=== PATIENT | male | born 1955 | race Caucasian/White ===

== ENCOUNTER 2016-11-03 18:24 | Emergency (ER) | payer OTHER ==
[~2016-11-03] VITALS: Ht 182.9 cm; Wt 88.0 kg
[~2016-11-03 18:24] MED LIST: ASPI81TA3 PO; ATOR80TA75 PO; CARV3.12 PO; CLOP75TA27 PO; ESOM40CA PO; HYDR-3504 PO; HYDR-906 PO; ISOS10TA2 PO; LORA-444 PO; LOSA100T47 PO; NAPR-688 PO; NIT4 SL; QUET200T27 PO
[2016-11-03 18:46] VITALS: Ht 182.9 cm; Wt 88.0 kg
[2016-11-03] MEDS ORDERED: ONDANSETRON 4 MG INJ IV STA (22:37)
[2016-11-03] MEDS ORDERED: morphine 4 MG/ML VIAL IV STA (22:37)
[2016-11-03] MEDS ORDERED: SOD CHLORIDE 0.9% 500 ML IV STA (22:37)
[2016-11-03] MEDS ORDERED: DIVA500T7 PO (22:59)
[2016-11-03] MEDS ORDERED: ISOS120T15 PO (22:59)
[2016-11-03] MEDS ORDERED: ESCI10TA PO (23:00)
[2016-11-03] MEDS ORDERED: PRAS10TA6 PO (23:02)
[2016-11-03] MEDS ORDERED: OLME5TAB4 PO (23:04)
--- NOTE | 2016-11-03 23:54 | RADRPT ---
PROCEDURE: XR Chest. CLINICAL INDICATION: Chest pain. TECHNIQUE: Single frontal view of the chest was obtained COMPARISON: 05/07/2016 FINDINGS: Cardiomegaly. Lungs are clear. Suspect a degree of COPD with changes of centrolobular emphysema. There is no pleural effusion or pneumothorax. IMPRESSION: No acute disease. RPTAT: [facility] Physician Naz Date Time Electronically viewed and signed by Ian Bahena Physician on 11/03/2016 23:54 RS/
[2016-11-03 23:55] LABS: ADD SCAN DIFF NO
[2016-11-03 23:57] LABS: EOSINOPHILS % 0.3 % (0.0-7.0); HEMATOCRIT 45.7 % (42.0-52.0); HEMOGLOBIN 15.5 g/dl (14.0-18.0); LYMPHOCYTES # 1.5 10^3/ul (0.8-2.9); LYMPHOCYTES % 19.5 % (15.0-51.0); MEAN CORPUSCULAR HEMOGLOBIN 29.3 pg (29.0-33.0); MEAN CORPUSCULAR HGB CONC 33.9 g/dl (32.0-37.0); MEAN CORPUSCULAR VOLUME 86.4 fl (82.0-101.0); MEAN PLATELET VOLUME 10.2 fl (7.4-10.4); MONOCYTE # 0.6 10^3/ul (0.3-0.9); MONOCYTES % 7.8 % (0.0-11.0); NEUTROPHIL # 5.6 10^3/ul (1.6-7.5); NEUTROPHILS % 72.1 % (39.0-77.0); PLATELET COUNT 197 10^3/UL (140-415); RED BLOOD COUNT 5.29 10^6/ul (4.70-6.10); RED CELL DISTRIBUTION WIDTH 13.4 % (11.5-14.5); WHITE BLOOD COUNT 7.7 10^3/ul (4.8-10.8)
[2016-11-04 00:05] LABS: ALBUMIN 4.4 g/dl (3.3-4.9); CHLORIDE 109 mmol/L (97-110); POTASSIUM 3.6 mmol/L (3.5-5.1); SODIUM 147 mmol/L (135-144)
[2016-11-04 00:06] LABS: INR 0.98
[2016-11-04 00:07] LABS: BILIRUBIN,INDIRECT 0.4 mg/dl (0-1.1); BILIRUBIN,TOTAL 0.4 mg/dl (0.2-1.3); CREATININE 0.77 mg/dl (0.61-1.24); PARTIAL THROMBOPLASTIN TIME 30.3 Sec (25.0-35.0)
[2016-11-04 00:08] LABS: ALANINE AMINOTRANSFERASE 26 IU/L (13-69); ALBUMIN/GLOBULIN RATIO 1.29; ALKALINE PHOSPHATASE 96 IU/L (42-121); ANION GAP 20 (8-16); ASPARTATE AMINO TRANSFERASE 26 IU/L (15-46); BLOOD UREA NITROGEN 10 mg/dl (7-20); CARBON DIOXIDE 22 mmol/L (21-31); GLUCOSE 88 mg/dl (70-220); TOTAL PROTEIN 7.8 g/dl (6.1-8.1)
[2016-11-04 00:09] LABS: CALCIUM 9.2 mg/dl (8.4-10.2)
[2016-11-04] MEDS ORDERED: KETOROLAC 30 MG INJ IV STA (00:12)
[2016-11-04 00:17] LABS: B-TYPE NATRIURETIC PEPTIDE 103 PG/ML (0-125)
[2016-11-04 00:27] LABS: TROPONIN-I < 0.012 ng/ml (0.00-0.12)
--- NOTE | 2016-11-04 01:51 | ERD ---
ER Documentation Chief Complaint Date/Time DATE: 11/04/16 TIME: 01:50 Chief Complaint chest pain since yesterday HPI Pain since yesterday. Patient has been in previous times with multiple workups in the past. Pain is mild to moderate intensity, right-sided in nature with no exacerbating or alleviating factors. ROS All systems reviewed and are negative except as per history of present illness. Medications Home Meds Reported Medications Olmesartan Medoxomil (Benicar) Unknown Strength Tablet, MG PO DAILY, #60 TAB 11/03/16 Prasugrel Hydrochloride* (Effient*) Unknown Strength Tablet, MG PO DAILY, TAB 11/03/16 Escitalopram Oxalate* (Lexapro*) 10 Mg Tablet, 10 MG PO DAILY, #30 TAB 11/03/16 Isosorbide Mononitrate* (Isosorbide Mononitrate*) 120 Mg Tab.sr.24h, 120 MG PO DAILY, TAB.SA 11/03/16 Divalproex Sodium* (Depakote ER*) 500 Mg Tabsr, 500 MG PO BID, #30 TAB.SA 11/03/16 Lorazepam* (Ativan*) 2 Mg Tablet, 2 MG PO BID Y for ANXIETY, #60 TAB 04/04/16 Hydrocodone Bit-Acetaminophen (Hydrocodone-APAP) 10-325MG Tablet, 1 TAB PO Q8 Y for PAIN, #20 09/10/15 Esomeprazole Mag Trihydrate (Nexium) 40 Mg Capsule.dr, 40 MG PO DAILY 08/18/15 Losartan Potassium* (Cozaar*) 100 Mg Tablet, 100 MG PO DAILY, TAB 06/28/15 Aspirin* (Aspirin* Chew) 81 Mg Tab.chew, 81 MG PO DAILY, TAB.CHEW 08/12/14 Nitroglycerin* (Nitrostat*) 0.4 Mg Tab.subl, 0.4 MG SL Q5MIN Y for CHEST PAIN, BOTTLE 08/12/14 Carvedilol* (Coreg*) 3.125 Mg Tablet, 3.125 MG PO BID, TAB 08/12/14 Atorvastatin* (Atorvastatin*) 80 Mg Tablet, 80 MG PO HS, TAB 08/12/14 Discontinued Reported Medications Quetiapine Fumarate* (Quetiapine Fumarate*) 200 Mg Tablet, 200 MG PO HS, TAB 04/04/16 Clopidogrel Bisulfate (Clopidogrel) 75 Mg Tablet, 75 MG PO DAILY, TAB 09/28/14 Isosorbide Dinitrate* (Isosorbide Dinitrate*) 10 Mg Tablet, 10 MG PO BID, TAB 08/12/14 Discontinued Scripts Hydrocodone/Acetaminophen ([place] 5-325 Tablet) 1 Each Tablet, 1 EACH PO Q6, #18 TAB Prov:LAWRENCE LEDEZMA DO 08/22/16 Naproxen* (Naproxen*) 500 Mg Tablet, 500 MG PO BID, #20 TAB Prov:LAWRENCE LEDEZMA DO 08/22/16 Hydrocodone/Acetaminophen ([place] 5-325 Tablet) 1 Each Tablet, 1 TAB PO Q6H Y for PAIN, #7 TAB Prov:EMILY FREEMAN PA-C 05/10/16 Allergies Allergies: Coded Allergies: haloperidol (Verified Allergy, Mild, TONGUE TWITHCING, 11/03/16) lisinopril (Verified Allergy, Unknown, cough, 11/03/16) PMhx/Soc History of Surgery: Yes (Appendectomy, R knee surgery, tonsils ) Anesthesia Reaction: No Hx Neurological Disorder: No Hx Respiratory Disorders: Yes (COPD, emphysema) Hx Cardiac Disorders: Yes (CAD, HTN, ) Hx Psychiatric Problems: Yes (Depression, bipolar) Hx Miscellaneous Medical Probl: Yes (HX of falls, ) Hx Alcohol Use: No Hx Substance Use: Yes (marijuana Q year) Hx Tobacco Use: Yes (vapor ciggs) Smoking Status: Current every day smoker Physical Exam Vitals Vital Signs Date Time Temp Pulse Resp B/P Pulse Ox O2 Delivery O2 Flow Rate FiO2 11/03/16 18:46 98.2 96 20 135/86 100 Physical Exam Const: [] Head: Atraumatic Eyes: Normal Conjunctiva ENT: Normal External Ears, Nose and Mouth. Neck: Full range of motion..~ No meningismus. Resp: Clear to auscultation bilaterally Cardio: Regular rate and rhythm, no murmurs Abd: Soft, non tender, non distended. Normal bowel sounds Skin: No petechiae or rashes Back: No midline or flank tenderness Ext: No cyanosis, or edema Neur: Awake and alert Psych: Normal Mood and Affect Result Diagram: 11/03/16 2320 11/03/16 2320 Results 24 hrs Laboratory Tests Test 11/03/16 23:20 Activated Partial Thromboplast Time 30.3Sec Alanine Aminotransferase (ALT/SGPT) 26IU/L Albumin 4.4g/dl Albumin/Globulin Ratio 1.29 Alkaline Phosphatase 96IU/L Anion Gap 20 Aspartate Amino Transf (AST/SGOT) 26IU/L B-Type Natriuretic Peptide 103PG/ML Basophils # 0.010^3/ul Basophils % 0.0% Blood Urea Nitrogen 10mg/dl Calcium Level 9.2mg/dl Carbon Dioxide Level 22mmol/L Chloride Level 109mmol/L Creatinine 0.77mg/dl Direct Bilirubin 0.00mg/dl Eosinophils # 0.010^3/ul Eosinophils % 0.3% Globulin 3.40g/dl Glucose Level 88mg/dl Hematocrit 45.7% Hemoglobin 15.5g/dl INR International Normalized Ratio 0.98 Indirect Bilirubin 0.4mg/dl Lymphocytes # 1.510^3/ul Lymphocytes % 19.5% Mean Corpuscular Hemoglobin 29.3pg Mean Corpuscular Hemoglobin Concent 33.9g/dl Mean Corpuscular Volume 86.4fl Mean Platelet Volume 10.2fl Monocytes # 0.610^3/ul Monocytes % 7.8% Neutrophils # 5.610^3/ul Neutrophils % 72.1% Nucleated Red Blood Cells # 0.010^3/ul Nucleated Red Blood Cells % 0.0/100WBC Platelet Count 83910^3/UL Potassium Level 3.6mmol/L Prothrombin Time 13.0Sec Prothrombin Time Ratio 1.0 Red Blood Count 5.2910^6/ul Red Cell Distribution Width 13.4% Sodium Level 147mmol/L Total Bilirubin 0.4mg/dl Total Protein 7.8g/dl Troponin I < 0.012ng/ml White Blood Count 7.710^3/ul Current Medications Medications (Trade) Dose Ordered Sig/Domenic Route PRN Reason Start Time Stop Time Status Last Admin Dose Admin Sodium Chloride (NS) 500 ml @ 500 mls/hr Q1H STAT IV 11/03/16 22:37 11/03/16 23:36 DC 11/03/16 23:24 Morphine Sulfate (morphine) 4 mg ONCE STAT IV 11/03/16 22:37 11/03/16 22:39 DC 11/03/16 23:24 Ondansetron HCl (Zofran Inj) 4 mg ONCE STAT IV 11/03/16 22:37 11/03/16 22:39 DC 11/03/16 23:30 Ketorolac Tromethamine (Toradol) 30 mg ONCE STAT IV 11/04/16 00:12 11/04/16 00:14 DC 11/04/16 00:31 Procedures/MDM EKG: Rate/Rhythm: Normal Sinus Rhythm QRS, ST, T-waves: No changes consistent w/ acute ischemia Impression: No evidence of ischemia or arrhythmia Chest X-ray 1V Interpreted by me: Soft Tissue: No acute abnormalities Bones: No acute abnormalities Mediastinum/Cardiac Silhouette/Lungs: No acute abnormalities Patient's thoracic symptoms have stabilized while in the department and are stable for outpatient follow up. Exam and work up not consistent w/ ischemia, arrhythmia, PE or dissection. Departure Diagnosis: Primary Impression: Chest pain Chest pain type: unspecified Qualified Code: R07.9 - Chest pain, unspecified type Condition: Stable ADALGISA GLASGOW Nov 04, 2016 01:51
[2016-11-04] MEDS ORDERED: TRAM50TA2 PO (01:52)
[2016-11-04 02:25] VITALS: BP 136/78; PULSE 58; RESP 17
== END 2016-11-04 02:26 | disposition home or self-care (01) ==
LOC: E/R 18:24
DX: R07.9 Chest pain, unspecified (principal); F17.210 Nicotine dependence, cigarettes, uncomplicated; I10 Essential (primary) hypertension; I25.10 Atherosclerotic heart disease of native coronary artery without angina pectoris; J44.9 Chronic obstructive pulmonary disease, unspecified; Z79.82 Long term (current) use of aspirin
CPT/HCPCS: 36415; 71010; 80053; 83880; 84484; 85025; 85610; 85730; 93005; 96361; 96374; 96375; J1885; J2270; J2405; J7040; Z7502

== ENCOUNTER 2017-02-04 21:58 | Inpatient (IN) | payer OTHER ==
[~2017-02-04] VITALS: Ht 182.9 cm; Wt 91.1 kg
[~2017-02-04 21:58] MED LIST changes: -CLOP75TA27 PO; +DIVA500T7 PO; +ESCI10TA PO; -HYDR-906 PO; -ISOS10TA2 PO; +ISOS120T15 PO; -NAPR-688 PO; +OLME5TAB4 PO; +PRAS10TA6 PO; -QUET200T27 PO; +TRAM50TA2 PO
--- NOTE | 2017-02-04 22:35 | ERA ---
ER Documentation Chief Complaint Date/Time DATE: 02/04/17 TIME: 22:34 Chief Complaint Chest pain HPI The patient is a 61-year-old male, presenting to the ER because of substernal chest pain and slurred speech that began about 8 hours ago. He had similar chest pain previous; he denies previous slurred speech. He did take 1 baby aspirin and 2 nitroglycerin with some relief. The chest pain is 8/10, nonradiating. He denies chest pain with exertion of vomiting or diaphoresis. He denies syncope, near syncope, neck pain, abdominal pain, vomiting, dysuria, diarrhea. He complains of left lateral thigh pain today, denies any tra Past medical history: CAD, hypertension, bipolar, dyslipidemia Past surgical history: Stent PCI 4 years ago, appendectomy, tonsillectomy, right knee arthroscopy ROS All systems reviewed and are negative except as per history of present illness. Medications Home Meds Active Scripts Tramadol HCl (Tramadol HCl) 50 Mg Tablet, 50 MG PO Q4 Y for PAIN, #20 TAB Prov:ALEXADALGISA HERNANDEZ 11/04/16 Reported Medications Quetiapine Fumarate* (Seroquel*) 300 Mg Tablet, 300 MG PO HS, TAB 02/04/17 Albuterol Sulfate* (Ventolin HFA*) 18 Gm Hfa.aer.ad, 1 PUFF INHALATION Q6H, #1 INHALER 02/04/17 Olmesartan Medoxomil (Benicar) 5 Mg Tablet, 5 MG PO DAILY, #60 TAB 11/03/16 Prasugrel Hydrochloride* (Effient*) 10 Mg Tablet, 10 MG PO DAILY, TAB 11/03/16 Escitalopram Oxalate* (Lexapro*) 10 Mg Tablet, 10 MG PO DAILY, #30 TAB 11/03/16 Isosorbide Mononitrate* (Isosorbide Mononitrate*) 120 Mg Tab.sr.24h, 120 MG PO DAILY, TAB.SA 11/03/16 Divalproex Sodium* (Depakote ER*) 500 Mg Tabsr, 500 MG PO BID, #30 TAB.SA 11/03/16 Lorazepam* (Ativan*) 2 Mg Tablet, 2 MG PO BID Y for ANXIETY, #60 TAB 04/04/16 Hydrocodone Bit-Acetaminophen (Hydrocodone-APAP) 10-325MG Tablet, 1 TAB PO Q8 Y for PAIN, #20 09/10/15 Esomeprazole Mag Trihydrate (Nexium) 40 Mg Capsule.dr, 40 MG PO DAILY 08/18/15 Losartan Potassium* (Cozaar*) 100 Mg Tablet, 100 MG PO DAILY, TAB 06/28/15 Aspirin* (Aspirin* Chew) 81 Mg Tab.chew, 81 MG PO DAILY, TAB.CHEW 08/12/14 Nitroglycerin* (Nitrostat*) 0.4 Mg Tab.subl, 0.4 MG SL Q5MIN Y for CHEST PAIN, BOTTLE 08/12/14 Carvedilol* (Coreg*) 3.125 Mg Tablet, 3.125 MG PO BID, TAB 08/12/14 Atorvastatin* (Atorvastatin*) 80 Mg Tablet, 80 MG PO HS, TAB 08/12/14 Allergies Allergies: Coded Allergies: haloperidol (Unverified Allergy, Mild, TONGUE TWITHCING, 02/04/17) lisinopril (Unverified Allergy, Unknown, cough, 02/04/17) PMhx/Soc History of Surgery: Yes (Appendectomy, R knee surgery, tonsils ) Anesthesia Reaction: No Hx Neurological Disorder: No Hx Respiratory Disorders: Yes (COPD, emphysema) Hx Cardiac Disorders: Yes (CAD, HTN, ) Hx Psychiatric Problems: Yes (Depression, bipolar) Hx Miscellaneous Medical Probl: Yes (HX of falls, ) Hx Alcohol Use: No Hx Substance Use: Yes (marijuana Q year) Hx Tobacco Use: Yes (vapor ciggs) Physical Exam Vitals Vital Signs Date Time Temp Pulse Resp B/P Pulse Ox O2 Delivery O2 Flow Rate FiO2 02/05/17 02:00 76 20 106/68 95 Room Air 02/05/17 00:28 98.0 92 20 123/81 100 02/04/17 22:03 98.7 139 20 160/83 97 Physical Exam Const: No acute distress. Head: Atraumatic. Eyes: Normal Conjunctiva. ENT: Normal External Ears, Nose and Mouth. Neck: Full range of motion. No meningismus. Resp: Clear to auscultation bilaterally. Cardio: Regular but tachycardic Abd: Soft, non distended, normal bowel sounds, non tender. Skin: No petechiae or rashes. Back: No midline or flank tenderness. Ext: No cyanosis, or edema. Neur: Awake and alert. No focal deficit Psych: Normal Mood and Affect. Result Diagram: 02/04/17225602/04/172256 Results 24 hrs Laboratory Tests Test 02/04/17 22:57 02/05/17 01:44 White Blood Count 4.310^3/ul Red Blood Count 4.7010^6/ul Hemoglobin 13.8g/dl Hematocrit 40.4% Mean Corpuscular Volume 86.0fl Mean Corpuscular Hemoglobin 29.4pg Mean Corpuscular Hemoglobin Concent 34.2g/dl Red Cell Distribution Width 13.6% Platelet Count 53968^3/UL Mean Platelet Volume 9.9fl Neutrophils % 69.5% Lymphocytes % 23.7% Monocytes % 5.8% Eosinophils % 0.5% Basophils % 0.0% Nucleated Red Blood Cells % 0.0/100WBC Neutrophils # 3.010^3/ul Lymphocytes # 1.010^3/ul Monocytes # 0.310^3/ul Eosinophils # 0.010^3/ul Basophils # 0.010^3/ul Nucleated Red Blood Cells # 0.010^3/ul Prothrombin Time 13.2Sec Prothrombin Time Ratio 1.0 INR International Normalized Ratio 1.00 Activated Partial Thromboplast Time 30.3Sec D-Dimer 695.77ng/ml D-Dimer Comment Sodium Level 149mmol/L Potassium Level 2.9mmol/L Chloride Level 113mmol/L Carbon Dioxide Level 22mmol/L Anion Gap 17 Blood Urea Nitrogen 10mg/dl Creatinine 0.80mg/dl Glucose Level 185mg/dl Calcium Level 9.6mg/dl Total Bilirubin 0.3mg/dl Direct Bilirubin 0.00mg/dl Indirect Bilirubin 0.3mg/dl Aspartate Amino Transf (AST/SGOT) 26IU/L Alanine Aminotransferase (ALT/SGPT) 38IU/L Alkaline Phosphatase 88IU/L Troponin I < 0.012ng/ml Total Protein 6.9g/dl Albumin 4.4g/dl Globulin 2.50g/dl Albumin/Globulin Ratio 1.76 Lipase 34U/L Thyroid Stimulating Hormone (TSH) 2.600MIU/L Ethyl Alcohol Level < 10.0mg/dl Urine Opiates Screen Positive Urine Barbiturates Negative Urine Amphetamines Screen Negative Urine Benzodiazepines Screen Positive Urine Cocaine Screen Negative Urine Cannabinoids Negative Current Medications Medications (Trade) Dose Ordered Sig/Domenic Route PRN Reason Start Time Stop Time Status Last Admin Dose Admin Lorazepam (Ativan) 1 mg ONCE ONCE PO 02/05/17 00:00 02/05/17 00:01 DC 02/04/17 23:52 Potassium Chloride 60 meq 60 meq ONCE ONCE PO 02/05/17 00:12 02/05/17 00:13 DC 02/05/17 00:24 Sodium Chloride (NS) 100 ml @ ud STK-MED ONCE .ROUTE 02/05/17 00:34 02/05/17 00:35 DC 02/05/17 01:04 Iohexol 150 ml 150 ml STK-MED ONCE .ROUTE 02/05/17 00:34 02/05/17 00:35 DC 02/05/17 01:04 Sodium Chloride (NS) 1,000 ml @ 1,000 mls/hr Q1H ONCE IV 02/05/17 01:00 02/05/17 01:59 DC 02/05/17 01:14 Aspirin (Aspirin) 325 mg ONCE ONCE PO 02/05/17 01:00 02/05/17 01:01 DC 02/05/17 01:14 Nitroglycerin (Nitroglycerin 2% Oint) 1 inch ONCE ONCE TD 02/05/17 01:00 02/05/17 01:01 DC 02/05/17 01:14 Morphine Sulfate (morphine) 4 mg ONCE STAT IV 02/05/17 01:16 02/05/17 01:17 DC 02/05/17 01:24 Ondansetron HCl (Zofran Inj) 4 mg ONCE STAT IV 02/05/17 01:16 02/05/17 01:17 DC 02/05/17 01:24 Aspirin (Aspirin) 81 mg DAILY PO 02/05/17 09:00 Atorvastatin Calcium (Lipitor) 80 mg HS PO 02/05/17 21:00 Carvedilol (Coreg) 3.125 mg BID PO 02/05/17 09:00 Divalproex Sodium (Depakote Er) 500 mg BID PO 02/05/17 09:00 Escitalopram Oxalate (Lexapro) 10 mg DAILY PO 02/05/17 09:00 Isosorbide Mononitrate (Imdur) 120 mg DAILY PO 02/05/17 09:00 Lorazepam (Ativan) 2 mg BID PRN PO ANXIETY 02/05/17 03:00 Losartan Potassium (Cozaar) 100 mg DAILY PO 02/05/17 09:00 Prasugrel (Effient) 10 mg DAILY PO 02/05/17 09:00 Quetiapine Fumarate (Seroquel) 300 mg HS PO 02/05/17 21:00 Pantoprazole 40 mg 40 mg DAILY@06 PO 02/05/17 06:00 Sodium Chloride (NS) 1,000 ml @ 100 mls/hr Q10H IV 02/05/17 03:00 UNV Acetaminophen (Tylenol Tab) 650 mg Q4H PRN PO pain/fever 02/05/17 03:00 UNV Morphine Sulfate (morphine) 4 mg Q4H PRN IV pain 02/05/17 03:00 UNV Hydralazine HCl (Apresoline) 25 mg Q6H PRN PO sbp>160 02/05/17 03:00 UNV Ondansetron HCl (Zofran Inj) 4 mg Q4H PRN IV nausea 02/05/17 03:00 UNV Procedures/[place] [id number] Radiology Main Line: [phone] DIAGNOSTIC IMAGING REPORT Patient: NATHAN RAMOS : 1955 Age: 61 Sex: M MR #: [id number] DOS: 02/04/17 2243 Ordering MD: JAROD HERNANDES MD Location: E/R Room/Bed: PROCEDURE: XR Chest. CLINICAL INDICATION: Chest pain. TECHNIQUE: Single frontal view of the chest. COMPARISON: 11/03/2016 and 05/07/2016. FINDINGS: The cardiomediastinal silhouette is within normal limits. Mild left lung base atelectasis versus airspace disease. The lungs otherwise clear. No signs of pleural fluid or pneumothorax are seen. Old left rib fracture again seen. Otherwise, the osseous structures and soft tissues are unremarkable. IMPRESSION: Mild left lung base atelectasis versus airspace disease. RPTAT: [facility] R Shruti, Physician Date Time Electronically viewed and signed by Physician Naz on 02/04/2017 23:54 RS/ CC: JAROD HERNANDES MD [place] [id number] Radiology Main Line: [phone] DIAGNOSTIC IMAGING REPORT Patient: NATHAN RAMOS : 1955 Age: 61 Sex: M MR #: [id number] DOS: 02/04/17 2243 Ordering MD: JAROD HERNANDES MD Location: E/R Room/Bed: PROCEDURE: CT brain without contrast CLINICAL INDICATION: Slurred speech TECHNIQUE: A CT of the brain was performed utilizing axial sections from the skull base through the vertex without contrast. Sagittal and coronal images were also reformatted. The exam CTDIvol = 45.01 mGy and DLP = 720.23 mGy-cm. COMPARISON: 05/07/2016 FINDINGS: No acute intracranial hemorrhage is identified. There is no mass effect or midline shift. No extra-axial fluid collection is seen. The ventricles and sulci are within normal limits for size and configuration given the provided age of 61 years. The density of the brain is within normal limits. Ferrara-white differentiation is preserved. The osseous structures are unremarkable. Moderate mucosal thickening of the ethmoid sinuses is present. The remaining paranasal sinuses and mastoid air cells are clear. The atherosclerotic calcification of the cavernous internal carotid arteries is again noted RPTAT:HJJR IMPRESSION: 1. No evidence of acute intracranial abnormality or mass effect, the appearance the brain is within normal limits for the patient's provided age and unchanged from 05/07/2016. 2. Bilateral ethmoid sinus disease is again noted. 3. Cavernous internal carotid artery atherosclerotic calcification. Physician Braden Date Time Electronically viewed and signed by Physician Braden on 02/05/2017 00:07 JR/ CC: JAROD HERNANDES MD [place] [id number] Radiology Main Line: [phone] DIAGNOSTIC IMAGING REPORT Patient: NATHAN RAMOS : 1955 Age: 61 Sex: M MR #: [id number] DOS: 02/05/17 0005 Ordering MD: JAROD HERNANDES MD Location: E/R Room/Bed: PROCEDURE: CTA Chest. CLINICAL INDICATION: Dyspnea. Current tobacco use. TECHNIQUE: CT angiography of the chest, with axial, sagittal and coronal reformatted images. Automated dose exposure controls employed. The total exam CTDI equals 79.86 mGy and the total exam DLP equals 701.52 mGy-cm. 100 cc Omnipaque-300 nonionic IV contrast were employed. COMPARISON: No prior studies are available for comparison. FINDINGS: Study is limited secondary to prominent systemic arterial phase and pulmonary venous phase. Otherwise, no large central or proximal peripheral pulmonary emboli. Hyperinflation of COPD and changes of centrolobular emphysema. The lungs otherwise clear. No hilar or mediastinal adenopathy. The pleura and osseous structures unremarkable. Limited visualization of abdominal viscera is unremarkable. IMPRESSION: 1. Hyperinflation of COPD and changes of centrolobular emphysema. 2. No pulmonary emboli. RPTAT: [facility] Physician Naz Date Time Electronically viewed and signed by Physician Naz on 02/05/2017 01:48 RS/ CC: JAROD HERNANDES MD EKG: At 2205 hrs. read by emergency physician Rate/Rhythm: Sinus tachycardia 134 beats/min QRS, ST, T-waves: No ST elevation, no T inversion Impression: Abnormal EKG EKG: At 2251 hour read by emergency physician Rate/Rhythm: Sinus tachycardia 122 beats/min QRS, ST, T-waves: No ST elevation, no T inversion Impression: Abnormal EKG MEDICAL MAKING DECISION: The patient is a 71-year-old male with multiple cardiac risk factors, presenting with acute chest pain that is concerning for a ACS, acute slow speech of unclear etiology, acute hypokalemia. He was treated with 1 L normal saline for clinical dehydration, Ativan 1 mg p.o. for his acute anxiety, potassium chloride 60 mEq p.o. for low potassium, aspirin 325 mg and 1 inch of nitroglycerin ointment to the chest wall, morphine 4 mg IV for pain and Zofran 4 mg IV for nausea for acute chest pain with good response The differential diagnoses considered include but are not limited to acute coronary syndrome, acute myocardial infarction, pericarditis, pulmonary embolism , aortic dissection, pneumonia, pleural effusion, pneumothorax, GERD, chest wall pain, TIA, impending CVA Critical Care: Time: 35 minutes excluding all billable procedures. Treatments/Evaluations: Close monitoring and treatment of unstable vital signs, cardiorespiratory, and neurologic status, while maintaining tight balance of fluid, respiratory, and cardiac interventions.. Departure Diagnosis: Primary Impression: Chest pain Additional Impressions: Hypokalemia Slurred speech Anemia Leukopenia Condition: Stable Comments I discussed the findings with the patient. I discussed the patient with his physician Dr. Longoria at 2:20 AM who was made aware of the lab, the treatment, the patient condition. He is coming to evaluate patient JAROD HERNANDES MD Feb 04, 2017 22:35
[2017-02-04 23:29] LABS: ADD SCAN DIFF NO
[2017-02-04 23:32] LABS: EOSINOPHILS % 0.5 % (0.0-7.0); HEMATOCRIT 40.4 % (42.0-52.0); HEMOGLOBIN 13.8 g/dl (14.0-18.0); LYMPHOCYTES % 23.7 % (15.0-51.0); MEAN CORPUSCULAR HEMOGLOBIN 29.4 pg (29.0-33.0); MEAN CORPUSCULAR HGB CONC 34.2 g/dl (32.0-37.0); MEAN PLATELET VOLUME 9.9 fl (7.4-10.4); MONOCYTE # 0.3 10^3/ul (0.3-0.9); MONOCYTES % 5.8 % (0.0-11.0); NEUTROPHILS % 69.5 % (39.0-77.0); PLATELET COUNT 145 10^3/UL (140-415); RED CELL DISTRIBUTION WIDTH 13.6 % (11.5-14.5); WHITE BLOOD COUNT 4.3 10^3/ul (4.8-10.8)
[2017-02-04] MEDS ORDERED: ALBU18HF INHALATION (23:43)
[2017-02-04] MEDS ORDERED: QUET300T13 PO (23:43)
[2017-02-04 23:52] LABS: PROTIME 13.2 Sec (12.2-14.2)
--- NOTE | 2017-02-04 23:54 | RADRPT ---
PROCEDURE: XR Chest. CLINICAL INDICATION: Chest pain. TECHNIQUE: Single frontal view of the chest. COMPARISON: 11/03/2016 and 05/07/2016. FINDINGS: The cardiomediastinal silhouette is within normal limits. Mild left lung base atelectasis versus air space disease. The lungs otherwise clear. No signs of pleural fluid or pneumothorax are seen. Old l eft rib fracture again seen. Otherwise, the osseous structures and soft tissues are unremarkable. IMPRESSION: Mild left lung base atelectasis versus airspace disease. RPTAT: [facility] Physician Naz Date Time Electronically viewed and signed by Physician Naz on 02/04/2017 23:54 RS/
[2017-02-04 23:55] LABS: D-DIMER 695.77 ng/ml (<460)
[2017-02-04 23:56] LABS: ALANINE AMINOTRANSFERASE 38 IU/L (13-69); ALBUMIN 4.4 g/dl (3.3-4.9); ALBUMIN/GLOBULIN RATIO 1.76; ALKALINE PHOSPHATASE 88 IU/L (42-121); ANION GAP 17 (8-16); ASPARTATE AMINO TRANSFERASE 26 IU/L (15-46); BILIRUBIN,INDIRECT 0.3 mg/dl (0-1.1); BILIRUBIN,TOTAL 0.3 mg/dl (0.2-1.3); BLOOD UREA NITROGEN 10 mg/dl (7-20); CALCIUM 9.6 mg/dl (8.4-10.2); CARBON DIOXIDE 22 mmol/L (21-31); CHLORIDE 113 mmol/L (97-110); GLUCOSE 185 mg/dl (70-220); SODIUM 149 mmol/L (135-144); TOTAL PROTEIN 6.9 g/dl (6.1-8.1)
[2017-02-04 23:57] LABS: PARTIAL THROMBOPLASTIN TIME 30.3 Sec (25.0-35.0)
[2017-02-05] VITALS (11 sets, daily range): BP systolic 98–128; BP diastolic 54–76; PULSE 63–73; RESP 16–18; TEMP 98; Ht 182.9 cm; Wt 91.1 kg
[2017-02-05] MEDS ORDERED: LORAZEPAM 1 MG TAB PO ONE
[2017-02-05 00:07] LABS: ETHANOL < 10.0 mg/dl; POTASSIUM 2.9 mmol/L (3.5-5.1); TROPONIN-I < 0.012 ng/ml (0.00-0.12)
--- NOTE | 2017-02-05 00:07 | RADRPT ---
PROCEDURE: CT brain without contrast CLINICAL INDICATION: Slurred speech TECHNIQUE: A CT of the brain was performed utilizing axial sections from the skull base through th e vertex without contrast. Sagittal and coronal images were also reformatted. The exam CTDIvol = 45. 01 mGy and DLP = 720.23 mGy-cm. COMPARISON: 05/07/2016 FINDINGS: No acute intracranial hemorrhage is identified. There is no mass effect or midline shift. No extra -axial fluid collection is seen. The ventricles and sulci are within normal limits for size and con figuration given the provided age of 61 years. The density of the brain is within normal limits. G ray-white differentiation is preserved. The osseous structures are unremarkable. Moderate mucosal thickening of the ethmoid sinuses is pres ent. The remaining paranasal sinuses and mastoid air cells are clear. The atherosclerotic calcific ation of the cavernous internal carotid arteries is again noted RPTAT:HJJR IMPRESSION: 1. No evidence of acute intracranial abnormality or mass effect, the appearance the brain is within normal limits for the patient's provided age and unchanged from 05/07/2016. 2. Bilateral ethmoid sinus disease is again noted. 3. Cavernous internal carotid artery atherosclerotic calcification. Physician Braden Date Time Electronically viewed and signed by Physician Braden on 02/05/2017 00:07 JR/
[2017-02-05] MEDS ORDERED: POTASSIUM CHLORIDE (SR) 20 MEQ TAB PO ONE (00:12)
[2017-02-05] MEDS ORDERED: IOHEXOL 300MG/ML 150 ML BTL ONE (00:34)
[2017-02-05] MEDS ORDERED: SOD CHLORIDE 0.9% 100 ML ONE (00:34)
[2017-02-05] MEDS ORDERED: ASPIRIN 325 MG TAB PO ONE (01:00)
[2017-02-05] MEDS ORDERED: NITROGLYCERIN 2% 1 GM OINT PKT TD ONE (01:00)
[2017-02-05] MEDS ORDERED: SOD CHLORIDE 0.9% 1,000 ML IV ONE (01:00)
[2017-02-05] MEDS ORDERED: morphine 4 MG/ML VIAL IV STA (01:16)
[2017-02-05] MEDS ORDERED: ONDANSETRON 4 MG INJ IV STA (01:16)
--- NOTE | 2017-02-05 01:48 | RADRPT ---
PROCEDURE: CTA Chest. CLINICAL INDICATION: Dyspnea. Current tobacco use. TECHNIQUE: CT angiography of the chest, with axial, sagittal and coronal reformatted images. Auto mated dose exposure controls employed. The total exam CTDI equals 79.86 mGy and the total exam DLP e quals 701.52 mGy-cm. 100 cc Omnipaque-300 nonionic IV contrast were employed. COMPARISON: No prior studies are available for comparison. FINDINGS: Study is limited secondary to prominent systemic arterial phase and pulmonary venous phase. Otherwi se, no large central or proximal peripheral pulmonary emboli. Hyperinflation of COPD and changes of centrolobular emphysema. The lungs otherwise clear. No hilar or mediastinal adenopathy. The pleura and osseous structures unremarkable. Limited visualization of abdominal viscera is unremarkable. IMPRESSION: 1. Hyperinflation of COPD and changes of centrolobular emphysema. 2. No pulmonary emboli. RPTAT: [facility] Physician Naz Date Time Electronically viewed and signed by Physician Naz on 02/05/2017 01:48 RS/
[2017-02-05 02:54] LABS: BENZODIAZEPINES Positive (NEGATIVE)
[2017-02-05 02:57] LABS: BARBITURATES Negative (NEGATIVE); CANNABINOIDS Negative (NEGATIVE); COCAINE Negative (NEGATIVE); OPIATES Positive (NEGATIVE)
[2017-02-05] MEDS ORDERED: ACETAMINOPHEN 325 MG TAB PO PRN (03:00)
[2017-02-05] MEDS ORDERED: ONDANSETRON 4 MG INJ IV PRN (03:00)
[2017-02-05] MEDS: morphine 4 MG/ML VIAL IV PRN ×6 (04:18→23:53)
[2017-02-05] MEDS: PANTOPRAZOLE (EC) 40 MG TAB PO SCH (05:52)
[2017-02-05] MEDS: SOD CHLORIDE 0.9% 1,000 ML IV SCH ×3 (05:53→21:32)
[2017-02-05 08:33] LABS: CREATINE KINASE 57 IU/L (23-200)
[2017-02-05 08:52] LABS: CK-MB 0.32 ng/ml (0.0-2.4); TROPONIN-I < 0.012 ng/ml (0.00-0.12)
[2017-02-05 10:44] LABS: CALCIUM 8.7 mg/dl (8.4-10.2); CREATININE 0.78 mg/dl (0.61-1.24); MAGNESIUM 1.7 mg/dl (1.7-2.5); PHOSPHORUS 3.5 mg/dl (2.5-4.9)
[2017-02-05 11:16] LABS: CK-MB 0.31 ng/ml (0.0-2.4)
[2017-02-05] MEDS ORDERED: REGADENOSON 0.4 MG/5 ML SYG ONE (12:21)
[2017-02-05] MEDS ORDERED: MAGNESIUM SULFATE 2 GM/50 ML 50 ML IVPB ONE (12:30)
--- NOTE | 2017-02-05 13:02 | CONS ---
DATE OF ADMISSION: 02/05/2017 DATE OF CONSULTATION: 02/05/2017 CARDIOLOGY CONSULTATION REASON FOR CONSULTATION: Chest pain, assess for acute coronary syndrome. REQUESTING PHYSICIAN: Dr. Woodson from the hospitalist service, and Dr. Mohamud HISTORY OF PRESENT ILLNESS: Mr. Bronson is a 61-year-old male with history of coronary artery disease, status post prior PTCA and stent placement, bipolar disorder, hypertension, diastolic dysfunction, prior negative stress test July 2015, who presented with complaints of substernal chest pain and associated slurred speech. The patient had taken some nitroglycerin with some relief. The patient subsequently presented to the emergency department where he describes chest pain as pressure-like without radiation, occurring at rest. Upon arrival, temperature 98.7, blood pressure 160/83, pulse 139, respiratory rate 20, saturating 97%. The patient's labs revealed a white blood cell count of 4.3, hemoglobin 13.8, platelet count of 145, sodium 149, potassium 2.9, creatinine of 0.8, BUN 10, AST 26, ALT 38, INR 1. Tox screen positive for opiates and benzos. The patient's electrocardiogram revealed sinus tachycardia at a rate of [address] and T-wave abnormalities. Patient subsequently admitted to the floor and since admit to the floor, has had 2 further troponins return negative for a total of 3 negative troponins. The patient continues to complain of chest pain. PAST MEDICAL HISTORY: As above in HPI. MEDICATIONS CURRENTLY IN HOSPITAL: 1. Lipitor 80 mg at bedtime. 2. Seroquel. 3. Aspirin 81 mg daily. 4. Carvedilol 3.125 mg p.o. b.i.d. 5. Lexapro. 6. Imdur 120 mg daily. 7. Cozaar 100 mg daily. 8. Effient 10 mg daily. 9. Protonix 40 mg daily. 10. IV fluid hydration at 100 mL an hour. 11. P.r.n. Zofran. 12. P.r.n. hydralazine. 13. P.r.n. morphine. ALLERGIES: 1. HALDOL. 2. LISINOPRIL. SOCIAL HISTORY: Positive tobacco. Social ETOH. Positive marijuana use. FAMILY HISTORY: No history of sudden cardiac or early CAD. REVIEW OF SYSTEMS: As above in HPI. CONSTITUTIONAL: No fevers, chills. PULMONARY: Shortness of breath. CARDIOVASCULAR: Chest pain. GASTROINTESTINAL: No vomiting. GENITOURINARY: No hematuria. MUSCULOSKELETAL: Degenerative joint disease. PSYCHIATRIC: Positive psychiatric history. NEUROLOGIC: No documented history of CVA. PHYSICAL EXAMINATION: VITAL SIGNS: Temperature of 98, blood pressure most recently 110/59, pulse 60, respiratory rate 18, satting 99%. GENERAL: The patient is alert, awake, in no acute distress. NECK: JVP approximately 8 to 9 cm of water. CHEST: Fair air movement throughout. HEART: Regular rate and rhythm, normal S1, S2, I/ systolic murmur, nondisplaced PMI. ABDOMEN: Positive bowel sounds, soft. EXTREMITIES: No edema, 1+ pulses bilaterally, posterior tibial. LABORATORY DATA: As above in [facility] with most recently from today, sodium 148, potassium 4.0, creatinine 0.7, BUN 10, troponin negative x3. TSH 2.6. IMAGING STUDIES: As above in HPI with a CTA revealing hyperinflation changes of centrilobular emphysema, no pulmonary emboli. ECG: As above in HPI. No further electrocardiograms for my review at this time. IMPRESSION: 1. Chest pain, assess for acute coronary syndrome. 2. Abnormal electrocardiogram, assess for acute coronary syndrome. 3. Hypertension. 4. Dyslipidemia. 5. Chronic obstructive pulmonary disease. 6. Psychiatric disorder. 7. History of percutaneous transluminal coronary angioplasty and stent placement. 8. Ongoing tobacco usage. 9. Anemia, mild. 10. Hypernatremia. RECOMMENDATIONS: 1. At this time, would maintain patient on telemetry monitoring to follow the rhythm and rate control closely. 2. Continue the patient's aspirin for prophylaxis against cardiovascular events and for stent patency. 3. Continue patient's current carvedilol at this time for blood pressure control and Imdur for antianginal effects, as well as Cozaar for blood pressure control. 4. Continue patient's current statin, adjust it according to fasting lipid panel to be checked. 5. We will follow the patient's 2D echo to further assess the patient's ejection fraction, wall motion and major valve abnormalities, and patient is scheduled for a cardiac stress test today to assess for possibility of recurrent significant lending to symptoms of chest pain, and subsequently admit to the hospital. Thank you for allowing me to take part in the care of this patient. I will continue to follow very closely with you with further recommendations to be made as the patient progresses through his inpatient hospital clinical course. Dictated By: JUAN ALBERTO MEJIA/ANNABELLA Conf#: [id number] DID#: [id number] CC: JUAN WOODSON MD;*EndCC* MTDD
--- NOTE | 2017-02-05 13:07 | CARRPT ---
DATE OF PROCEDURE: 02/05/2017 REASON FOR STRESS TESTING: Chest pain, assess for ischemia. BASELINE VITAL SIGNS AND ELECTROCARDIOGRAM: Pulse 59, blood pressure 133/79. Electrocardiogram rev eals sinus bradycardia, rate 59, normal axis, normal intervals, lateral T-wave inversions isolated t o lead aVL. PROCEDURE: The patient underwent standard Lexiscan infusion protocol over 10 seconds followed by ra diolabeled tracer. The patient's test was stopped due to completion of protocol. Maximal achieved blood pressure during the test 127/72. Maximum heart rate during the test 88. ELECTROCARDIOGRAM FINDINGS: The patient did not develop any new Lexiscan-induced ST or T-wave arnold es from baseline abnormalities. No documented PVCs. SYMPTOMS: The patient had complaints of chest pain during stress test that resolved during recovery . IMPRESSION: 1. No Lexiscan-induced ST or T-wave changes from baseline abnormalities diagnostic for cardiac isch emia. 2. Complaints of chest pain during stress testing, which resolved in recovery. 3. No documented premature ventricular contractions during stress testing. 4. Report of nuclear images to follow in separate dictation. Dictated By: JUAN ALBERTO MEJIA/ANNABELLA Conf#: [id number] DID#: [id number] CC: SERGEY CORONA MD; * ;*[facility]*
--- NOTE | 2017-02-05 13:44 | RADRPT ---
PROCEDURE: Lexiscan myocardial perfusion study CLINICAL INDICATION: 61 -year-old patient complaining of chest pain. TECHNIQUE: Lexiscan 0.4 mg intravenously separate acquisition gated myocardial perfusion SPECT usi ng Tc 99m Myoview 31.4 mCi intravenously at stress and Tc-99m Myoview, 10.2 mCi intravenously at res t was performed using the rest/stress sequence. Poststress Myoview SPECT images were obtained in th e supine position. COMPARISON: August 09, 2015. FINDINGS: Perfusion images reveal mild nonreversible perfusion abnormality in the inferoapical, inferior and i nferoseptal mireles. There is no evidence of new perfusion defects. Lexiscan post stress gated SPECT images demonstrate mild hypokinesis of the left ventricle. IMPRESSION: 1. The type and distribution of the scintigraphic abnormalities are most consistent with an unchang ed nonreversible perfusion defect in the inferoapical, inferior and inferoseptal mireles. 2. Mild hypokinesis of the left ventricle. 3. The left ventricle ejection fraction at stress is 43% (prior EF was 48%). RPTAT: HH .More Snyder MD, Date Time Electronically viewed and signed by .More Snyder MD, on 02/05/2017 13:43 .L/
--- NOTE | 2017-02-05 14:57 | PDOCDIS ---
Discharge Instructions CONDITION Patient Condition: Stable HOME CARE INSTRUCTIONS: Diet Instructions: Low Fat /CholesterolSpecial Diet: cardiac diet ACTIVITY: Activity Restrictions: No Restrictions FOLLOW UP/APPOINTMENTS Appointments Follow up with PCP within 1 week Follow up with Cardiology in 1 to 2 weeks JUAN WOODSON Feb 05, 2017 14:57
[2017-02-05] MEDS ORDERED: ADV25050 INH (15:01)
[2017-02-05] MEDS ORDERED: TRAM50TA2 PO (15:01)
[2017-02-05] MEDS ORDERED: TIOT18CA INH (15:01)
[2017-02-05] MEDS: PRASUGREL HYDROCHLORIDE 10 MG TABLET PO SCH (15:33)
[2017-02-05] MEDS: LOSARTAN 50 MG TAB PO SCH (15:35)
[2017-02-05] MEDS: LORAZEPAM 1 MG TAB PO PRN ×2 (15:36→21:31)
[2017-02-05] MEDS: ESCITALOPRAM 10 MG TAB PO SCH (15:36)
[2017-02-05] MEDS: DIVALPROEX (ER) 500 MG TAB PO SCH ×2 (15:36→20:05)
[2017-02-05] MEDS: ASPIRIN 81 MG TAB PO SCH (15:37)
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
[2017-02-05] MEDS: ISOSORBIDE MONONITRATE(SR)60 MG TAB PO SCH (15:38)
--- NOTE | 2017-02-05 15:51 | RADRPT ---
Echocardiogram Report Patient Name: NATHAN RAMOS Gender: Male Date: 1955 Study Date: 05-Feb-2017 Orthopaedic Nurse: Shania Lopez [facility] Location: 5538 Ref. Physician: SERGEY CORONA Quality: Adequate Procedures: Transthoracic echocardiogram with complete 2D, M-Mode, and doppler examination. Indications: Chest Pain. 2D/M Mode Doppler Measurement Value Normal Ranges Measurement Value Normal Ranges LVIDd 2D 5.4 3.5 - 5.6 cm AV Peak Heath 1.1 m/sec LVIDs 2D 2.7 2.1 - 4.1 cm AV Peak PG 4.0 mmHg FS 2D 49.4 % LVOT Peak Heath 0.9 m/sec LVPWd 2D 1.1 0.6 - 1.1 cm LVOT Peak PG 3.0 mmHg IVSd 2D 1.2 0.6 - 1.1 cm MV E Peak Heath 0.6 m/sec IVS/LVPW 2D 1.1 MV A Peak Heath 0.7 m/sec AoR Diam 2D 3.5 2.0 - 3.7 cm MV E/A 0.8 LA/Ao 2D 1 0 - 1 MV Decel Time 127 msec EDV 2D 157.0 cm3 MV E/A 0.8 ESV 2D 20.3 cm3 TR Peak Heath 2.0 m/sec LA Dimen 2D 3.7 2.3 - 4.0 cm TR Peak PG 17.0 mmHg RVSP 20.0 mmHg Findings Left Ventricle: Lower limits of normal systolic function. Normal left ventricular cavity size. Mild concentric left ventricular hypertrophy. Ejection fraction is visually estimated at 50 %. Tissue Doppler/Mitral Doppler indices are consistent with impaired relaxation (Stage I diastolic dysfunction). Right Ventricle: Normal right ventricular size. Normal right ventricular systolic function. Left Atrium: The left atrium is normal in size. Right Atrium: The right atrium is normal in size. Mitral Valve: Normal appearance and function of the mitral valve with trace physiologic regurgitation. Aortic Valve: Normal appearance of the aortic valve. No significant aortic stenosis or insufficiency. Tricuspid Valve: Normal appearance of the tricuspid valve. Estimated peak PA systolic pressure 20 mmHg. There is trace tricuspid regurgitation. Pulmonic Valve: Normal pulmonic valve appearance. Pericardium: Normal pericardium with no significant pericardial effusion. Aorta: Normal aortic root. IVC: Normal size and normal respiratory collapse consistent with normal right atrial pressure. Conclusions Lower limits of normal systolic function. Normal left ventricular cavity size. Mild concentric left ventricular hypertrophy. Ejection fraction is visually estimated at 50 %. Tissue Doppler/Mitral Doppler indices are consistent with impaired relaxation (Stage I diastolic dysfunction). Normal right ventricular size. Normal right ventricular systolic function. The left atrium is normal in size. The right atrium is normal in size. No significant valvular stenosis or regurgitation seen. Normal pericardium with no significant pericardial effusion. Electronically Signed By: Tremayne Patterson 05-Feb-2017 15:50:19 -0700 Patient Name: NATHAN RAMOS Study Date: 05-Feb-2017 [id number]
[2017-02-05] MEDS: SALMETEROL/FLUTICASONE 250/50 INHA INH SCH ×2 (17:52→20:05)
[2017-02-05] MEDS: TIOTROPIUM 18 MCG CAPSULE INHA DEV INH SCH (17:52)
--- NOTE | 2017-02-05 20:05 | RADRPT ---
PROCEDURE: Ultrasound of the left lower extremity venous system. CLINICAL INDICATION: Left leg pain and swelling, deep venous thrombosis TECHNIQUE: Ferrara scale with and without compression, color doppler, spectral doppler of the venous system of the left lower extremity was performed. Venous augmentation maneuvers were utilized. COMPARISON: No prior studies are available for comparison. FINDINGS: Common femoral vein: Patent. Femoral vein: Patent. Popliteal vein: Patent. Calf veins: Patent. No soft tissue abnormalities are identified. IMPRESSION: No evidence of a deep vein thrombosis within the left lower extremity. RPTAT: AADD .Zafar Alarcon MD, MD Date Time Electronically viewed and signed by .Zafar Alarcon MD, on 02/05/2017 20:05 .B/
[2017-02-05] MEDS ORDERED: QUETIAPINE 100 MG TAB PO SCH (21:00)
[2017-02-05] MEDS ORDERED: ATORVASTATIN 80 MG TAB PO SCH (21:00)
--- NOTE | 2017-02-05 21:09 | RADRPT ---
PROCEDURE: US Lower extremity Arteries. CLINICAL INDICATION: Claudication TECHNIQUE: Multiple longitudinal and transverse images of the bilateral lower extremity arteries w ere obtained with bradley scale and color Doppler imaging. COMPARISON: No prior studies are available for comparison. FINDINGS: Peak systolic velocities are as follows: Location RightLeft waveforms [id number] cm/ozb789 cm/sec triphasic/triphasic PSFA96 cm/ooi040 cm/sec triphasic/triphasic UMGQ420 cm/icz270 cm/sec triphasic/triphasic DSFA94 cm/sec96 cm/sec triphasic/triphasic POP66 cm/sec75 cm/sec triphasic/triphasic PTA59 cm/sec49 cm/sec triphasic/triphasic NOT694 cm/sec59 cm/sec triphasic/triphasic Ankle brachial indices: PT: 0.87 0.92 DP: 0.92 0.96 RPTAT:HJJR IMPRESSION: 1. Mild plaque formation without evidence for hemodynamically significant stenosis or occlusion. Physician Braden Date Time Electronically viewed and signed by Physician Braden on 02/05/2017 21:08 /
[2017-02-06] VITALS (7 sets, daily range): BP systolic 99–109; BP diastolic 53–58; PULSE 61–70; RESP 18
[2017-02-06] MEDS: morphine 4 MG/ML VIAL IV PRN ×2 (03:52→08:23)
[2017-02-06] MEDS: PANTOPRAZOLE (EC) 40 MG TAB PO SCH (05:54)
[2017-02-06] MEDS: SOD CHLORIDE 0.9% 1,000 ML IV SCH (07:28)
[2017-02-06] MEDS: SALMETEROL/FLUTICASONE 250/50 INHA INH SCH (08:21)
[2017-02-06] MEDS: ASPIRIN 81 MG TAB PO SCH (08:21)
[2017-02-06] MEDS: PRASUGREL HYDROCHLORIDE 10 MG TABLET PO SCH (08:21)
[2017-02-06] MEDS: ESCITALOPRAM 10 MG TAB PO SCH (08:21)
[2017-02-06] MEDS: TIOTROPIUM 18 MCG CAPSULE INHA DEV INH SCH (08:21)
[2017-02-06] MEDS: DIVALPROEX (ER) 500 MG TAB PO SCH (08:21)
[2017-02-06] MEDS: ISOSORBIDE MONONITRATE(SR)60 MG TAB PO SCH (08:22)
[2017-02-06] MEDS: LOSARTAN 50 MG TAB PO SCH (08:23)
[2017-02-06 08:29] LABS: CHOL/HDL RATIO 4.5 RATIO
--- NOTE | 2017-02-06 09:52 | PN ---
Date/Time of Note Date/Time of Note DATE: 02/06/17 TIME: 09:47 Assessment/Plan VTE Prophylaxis VTE Prophylaxis Intervention: ambulation Lines/Catheters IV Catheter Type (from Nrs): Peripheral IV Assessment/Plan Assessment/Plan 61-year-old male with: 1. Chest pressure which is atypical at this point, his stress test is unchanged. He has been ruled out for acute coronary syndrome. This may actually be related more so to his chronic obstructive pulmonary disease and he is still actively smoking. Continue cardiac meds Continue Advair and Spiriva and resume Ventolin prn at home 2. Hypertension. continue home Meds 3. Bipolar depression. Continue home medication. 4. Hyperlipidemia. Continue Lipitor. 5. Left lower extremity pain, Doppler arterial and venous of the left lower extremity negative are pending. Continue antiplatelet therapy. 6. Tobacco use via electronic cigarettes. I have counseled for the patient to quit altogether and just stop the electronic cigarettes too. 7. Gastroesophageal reflux disease. Continue proton pump inhibitors. Prophylaxis. The patient on proton pump inhibitors already and ambulatory. DISPOSITION: D/c home with PCP and cardiology follow up. Subjective 24 Hr Interval Summary Free Text/Dictation Patient is doing Well Cardiac w/u negative and Doppler Lower ext negative too D/c home this AM Exam/Review of Systems Vital Signs Vitals Vital Signs Date Time Temp Pulse Resp B/P Pulse Ox O2 Delivery O2 Flow Rate FiO2 02/06/17 08:21 63 02/06/17 07:39 98.3 18 100/55 95 02/05/17 23:31 Nasal Cannula 2.0 Intake and Output 02/05/17 02/05/17 02/06/17 14:59 22:59 06:59 Intake Total 1480 ml 500 ml Balance 1480 ml 500 ml Exam Constitutional: alert, oriented, well developed Respiratory: clear to auscultation, normal air movement Cardiovascular: nl pulses, regular rate and rhythm Gastrointestinal: non-tender, soft Musculoskeletal: nl extremities to inspection Extremities: normal pulses, other (no edema, clubbing or cyanosis ) Neurological: [employer] II-XII intact, nl mental status, nl speech, nl strength Results Result Diagram: 02/04/17 2203 02/05/17 1000 Results 24 hrs Laboratory Tests Test 02/05/17 10:00 02/06/17 06:48 Sodium Level 148 H Potassium Level 4.0 Chloride Level 117 H Carbon Dioxide Level 24 Anion Gap 11 Blood Urea Nitrogen 10 Creatinine 0.78 Glucose Level 87 # Calcium Level 8.7 Phosphorus Level 3.5 Magnesium Level 1.7 Creatine Kinase 59 Creatinine Kinase MB (Mass) 0.31 Troponin I < 0.012 Triglycerides Level 109 Cholesterol Level 124 LDL Cholesterol, Calculated 75 HDL Cholesterol 27 L Cholesterol/HDL Ratio 4.5 Medications Medications Current Medications Aspirin (Aspirin) 81 mg DAILY PO Last administered on 02/06/17 08:21; Admin Dose 81 MG; Start 02/05/17 at 09:00 Atorvastatin Calcium (Lipitor) 80 mg HS PO Last administered on 02/05/17 20:05 ; Admin Dose 80 MG; Start 02/05/17 at 21:00 Carvedilol (Coreg) 3.125 mg BID PO Last administered on 02/06/17 08:25; Admin Dose 3.125 MG; Start 02/05/17 at 09:00 Divalproex Sodium (Depakote Er) 500 mg BID PO Last administered on 02/06/17 08: 21; Admin Dose 500 MG; Start 02/05/17 at 09:00 Escitalopram Oxalate (Lexapro) 10 mg DAILY PO Last administered on 02/06/17 08: 21; Admin Dose 10 MG; Start 02/05/17 at 09:00 Isosorbide Mononitrate (Imdur) 120 mg DAILY PO Last administered on 02/06/17 08 :22; Admin Dose 120 MG; Start 02/05/17 at 09:00 Lorazepam (Ativan) 2 mg BID PRN PO ANXIETY Last administered on 02/05/17 21:31 ; Admin Dose 2 MG; Start 02/05/17 at 03:00 Losartan Potassium (Cozaar) 100 mg DAILY PO Last administered on 02/06/17 08:23 ; Admin Dose 100 MG; Start 02/05/17 at 09:00 Prasugrel (Effient) 10 mg DAILY PO Last administered on 02/06/17 08:21; Admin Dose 10 MG; Start 02/05/17 at 09:00 Quetiapine Fumarate (Seroquel) 300 mg HS PO Last administered on 02/05/17 21:31 ; Admin Dose 300 MG; Start 02/05/17 at 21:00 Pantoprazole 40 mg 40 mg DAILY@06 PO Last administered on 02/06/17 05:54; Admin Dose 40 MG; Start 02/05/17 at 06:00 Sodium Chloride (NS) 1,000 ml @ 100 mls/hr Q10H IV Last administered on 07:28; Admin Dose 100 MLS/HR; Start 02/05/17 at 03:00 Acetaminophen (Tylenol Tab) 650 mg Q4H PRN PO pain/fever; Start 02/05/17 at 03: 00 Morphine Sulfate (morphine) 4 mg Q4H PRN IV pain Last administered on 02/06/17 08:23; Admin Dose 4 MG; Start 02/05/17 at 03:00 Hydralazine HCl (Apresoline) 25 mg Q6H PRN PO sbp>160 Last administered on 15:36; Admin Dose 25 MG; Start 02/05/17 at 03:00 Ondansetron HCl (Zofran Inj) 4 mg Q4H PRN IV nausea; Start 02/05/17 at 03:00 Salmeterol Xinafoate/ Fluticasone (Advair 250/50 Diskus) 1 inh BID INH Last administered on 02/06/17 08:21; Admin Dose 1 INH; Start 02/05/17 at 16:30 Tiotropium Hubbard (Spiriva) 1 inh DAILY INH Last administered on 02/06/17 08: 21; Admin Dose 1 INH; Start 02/05/17 at 16:30 JUAN WOODSON Feb 06, 2017 09:52
--- NOTE | 2017-02-06 12:49 | CONS ---
Date/Time of Note Date/Time of Note DATE: 02/06/17 TIME: 12:40 Assessment/Plan Assessment/Plan Chief Complaint/Hosp Course IMPRESSION: 1. Chest pain, assess for acute coronary syndrome.-negative trop x 3/Lexiscan no ischemia/scar/EF 43%/Echo EF 50% 2. Abnormal electrocardiogram, assess for acute coronary syndrome. 3. Hypertension. 4. Dyslipidemia. 5. Chronic obstructive pulmonary disease. 6. Psychiatric disorder. 7. History of percutaneous transluminal coronary angioplasty and stent placement. 8. Ongoing tobacco usage. 9. Anemia, mild. 10. Hypernatremia. REcc: -Tele -serial ecg's -Continue coreg/losartan -Continue effient/asa -Continue imdur/statin -Follow volume status -D/C plannig with outpatient f/u Problems: Consultation Date/Type/Reason Admit Date/Time Feb 05, 2017 at 04:22 Initial Consult Date 02/06/2017 Type of Consultation: Cardiology Reason for Consultation chest pain Referring Provider: JUAN WOODSON Exam/Review of Systems Vital Signs Vitals Vital Signs Date Time Temp Pulse Resp B/P Pulse Ox O2 Delivery O2 Flow Rate FiO2 02/06/17 12:11 61 02/06/17 11:53 98.0 18 99/53 97 02/05/17 23:31 Nasal Cannula 2.0 Intake and Output 02/05/17 02/05/17 02/06/17 15:00 23:00 07:00 Intake Total 1480 ml 500 ml Balance 1480 ml 500 ml Exam Review of Systems: CONSTITUTIONAL: No fevers, chills. PULMONARY: No sob CARDIOVASCULAR: No chest pain/palpitations GASTROINTESTINAL: No nausea/vomiting. GENITOURINARY: No hematuria/dysuria. MUSCULOSKELETAL: No myagias/arthalgias. PSYCHIATRIC: The patient denies depression. NEUROLOGIC: No weakness Constitutional: alert Psych: no complaints Head: normocephalic ENMT: mucosa pink and moist Neck: jvd (8 cm water), supple Respiratory: diminished breath sounds Cardiovascular: regular rate and rhythm Gastrointestinal: non-tender, soft Musculoskeletal: muscle tone (normal) Extremities: edema (trace) Neurological: other (no focal deficits) Results Result Diagram: 02/04/17 2257 02/05/17 1000 Results 24 hrs Laboratory Tests Test 02/06/17 06:48 Triglycerides Level 109 Cholesterol Level 124 LDL Cholesterol, Calculated 75 HDL Cholesterol 27 L Cholesterol/HDL Ratio 4.5 Medications Medications Current Medications Aspirin (Aspirin) 81 mg DAILY PO Last administered on 02/06/17 08:21; Admin Dose 81 MG; Start 02/05/17 at 09:00 Atorvastatin Calcium (Lipitor) 80 mg HS PO Last administered on 02/05/17 20:05 ; Admin Dose 80 MG; Start 02/05/17 at 21:00 Carvedilol (Coreg) 3.125 mg BID PO Last administered on 02/06/17 08:25; Admin Dose 3.125 MG; Start 02/05/17 at 09:00 Divalproex Sodium (Depakote Er) 500 mg BID PO Last administered on 02/06/17 08: 21; Admin Dose 500 MG; Start 02/05/17 at 09:00 Escitalopram Oxalate (Lexapro) 10 mg DAILY PO Last administered on 02/06/17 08: 21; Admin Dose 10 MG; Start 02/05/17 at 09:00 Isosorbide Mononitrate (Imdur) 120 mg DAILY PO Last administered on 02/06/17 08 :22; Admin Dose 120 MG; Start 02/05/17 at 09:00 Lorazepam (Ativan) 2 mg BID PRN PO ANXIETY Last administered on 02/05/17 21:31 ; Admin Dose 2 MG; Start 02/05/17 at 03:00 Losartan Potassium (Cozaar) 100 mg DAILY PO Last administered on 02/06/17 08:23 ; Admin Dose 100 MG; Start 02/05/17 at 09:00 Prasugrel (Effient) 10 mg DAILY PO Last administered on 02/06/17 08:21; Admin Dose 10 MG; Start 02/05/17 at 09:00 Quetiapine Fumarate (Seroquel) 300 mg HS PO Last administered on 02/05/17 21:31 ; Admin Dose 300 MG; Start 02/05/17 at 21:00 Pantoprazole 40 mg 40 mg DAILY@06 PO Last administered on 02/06/17 05:54; Admin Dose 40 MG; Start 02/05/17 at 06:00 Sodium Chloride (NS) 1,000 ml @ 100 mls/hr Q10H IV Last administered on 07:28; Admin Dose 100 MLS/HR; Start 02/05/17 at 03:00 Acetaminophen (Tylenol Tab) 650 mg Q4H PRN PO pain/fever; Start 02/05/17 at 03: 00 Morphine Sulfate (morphine) 4 mg Q4H PRN IV pain Last administered on 02/06/17 08:23; Admin Dose 4 MG; Start 02/05/17 at 03:00 Hydralazine HCl (Apresoline) 25 mg Q6H PRN PO sbp>160 Last administered on 15:36; Admin Dose 25 MG; Start 02/05/17 at 03:00 Ondansetron HCl (Zofran Inj) 4 mg Q4H PRN IV nausea; Start 02/05/17 at 03:00 Salmeterol Xinafoate/ Fluticasone (Advair 250/50 Diskus) 1 inh BID INH Last administered on 02/06/17 08:21; Admin Dose 1 INH; Start 02/05/17 at 16:30 Tiotropium [place] (Spiriva) 1 inh DAILY INH Last administered on 02/06/17 08: 21; Admin Dose 1 INH; Start 02/05/17 at 16:30 JUAN ALBERTO LEUNG Feb 06, 2017 12:48
== END 2017-02-06 13:12 | disposition home or self-care (01) | DRG 313 ==
LOC: E/R 21:58 → MS4 02-05 04:22
PROVIDERS: ADMIT Legal Medicine; ATTEND Legal Medicine
DX: R07.9 Chest pain, unspecified (principal); E87.0 Hyperosmolality and hypernatremia; I10 Essential (primary) hypertension; E78.5 Hyperlipidemia, unspecified; J44.9 Chronic obstructive pulmonary disease, unspecified; F99 Mental disorder, not otherwise specified; F17.200 Nicotine dependence, unspecified, uncomplicated; D64.9 Anemia, unspecified; F31.9 Bipolar disorder, unspecified; K21.9 Gastro-esophageal reflux disease without esophagitis; Z79.82 Long term (current) use of aspirin
CPT/HCPCS: 36415; 70450; 71010; 71275; 78452; 80048; 80053; 80061; 80306; 80307; 82550; 82553; 83690; 83735; 84100; 84443; 84484; 85025; 85378; 85610; 85730; 93005; 93017; 93306; 93922; 93971; 96374; 96375; 96376; A9500; A9505; J2270; J2405; J2785; J3475; J7030; Q9967

== ENCOUNTER 2017-04-28 20:13 | Emergency (ER) | payer OTHER ==
[~2017-04-28] VITALS: Ht 182.9 cm; Wt 87.5 kg
[~2017-04-28 20:13] MED LIST changes: +ADV25050 INH; +ALBU18HF INHALATION; -HYDR-3504 PO; -OLME5TAB4 PO; +QUET300T13 PO; +TIOT18CA INH
[2017-04-28 20:41] VITALS: Ht 182.9 cm; Wt 87.5 kg
[2017-04-28 22:50] VITALS: TEMP 98.5
[2017-04-28] MEDS ORDERED: ASPIRIN 325 MG TAB PO STA (22:58)
[2017-04-28] MEDS ORDERED: SOD CHLORIDE 0.9% 500 ML IV STA (22:58)
[2017-04-28] MEDS ORDERED: LORAZEPAM 2 MG INJ IV ONE (23:00)
[2017-04-28 23:18] LABS: BASOPHILS % 0.1 % (0.0-2.0); EOSINOPHILS % 0.3 % (0.0-7.0); HEMATOCRIT 43.7 % (42.0-52.0); HEMOGLOBIN 15.6 g/dl (14.0-18.0); LYMPHOCYTES # 1.3 10^3/ul (0.8-2.9); LYMPHOCYTES % 19.2 % (15.0-51.0); MEAN CORPUSCULAR HEMOGLOBIN 30.5 pg (29.0-33.0); MEAN CORPUSCULAR HGB CONC 35.7 g/dl (32.0-37.0); MEAN CORPUSCULAR VOLUME 85.4 fl (82.0-101.0); MEAN PLATELET VOLUME 9.5 fl (7.4-10.4); MONOCYTE # 0.5 10^3/ul (0.3-0.9); MONOCYTES % 6.6 % (0.0-11.0); NEUTROPHILS % 73.5 % (39.0-77.0); PLATELET COUNT 149 10^3/UL (140-415); RED BLOOD COUNT 5.12 10^6/ul (4.70-6.10); RED CELL DISTRIBUTION WIDTH 13.4 % (11.5-14.5)
--- NOTE | 2017-04-28 23:56 | RADRPT ---
PROCEDURE: XR Chest. CLINICAL INDICATION: Chest pain. TECHNIQUE: Single frontal view of the chest. COMPARISON: Plain film chest dated 02/04/2017. FINDINGS: The cardiomediastinal silhouette is within normal limits. The thoracic aorta is mildly tortuous. Th e lungs are clear. No signs of pleural fluid or pneumothorax are seen. The osseous structures and so ft tissues are unremarkable. IMPRESSION: No evidence for active cardiopulmonary disease. RPTAT: [facility] Physician Naz Date Time Electronically viewed and signed by Physician Naz on 04/28/2017 23:56 RS/
[2017-04-29] MEDS ORDERED: PANT40TA4 PO (00:10)
[2017-04-29 00:12] LABS: ALANINE AMINOTRANSFERASE 34 IU/L (13-69); ALBUMIN 4.2 g/dl (3.3-4.9); ALBUMIN/GLOBULIN RATIO 1.23; ALKALINE PHOSPHATASE 103 IU/L (42-121); ANION GAP 20 (8-16); ASPARTATE AMINO TRANSFERASE 21 IU/L (15-46); BILIRUBIN,INDIRECT 0.3 mg/dl (0-1.1); BILIRUBIN,TOTAL 0.3 mg/dl (0.2-1.3); BLOOD UREA NITROGEN 13 mg/dl (7-20); CALCIUM 9.7 mg/dl (8.4-10.2); CARBON DIOXIDE 23 mmol/L (21-31); CHLORIDE 108 mmol/L (97-110); GLUCOSE 95 mg/dl (70-220); POTASSIUM 3.6 mmol/L (3.5-5.1); SODIUM 147 mmol/L (135-144); TOTAL PROTEIN 7.6 g/dl (6.1-8.1)
[2017-04-29] MEDS ORDERED: HYDR-902 PO (00:13)
[2017-04-29] MEDS ORDERED: CLOP75TA27 PO (00:21)
[2017-04-29 00:22] LABS: B-TYPE NATRIURETIC PEPTIDE 62 PG/ML (0-125); TROPONIN-I < 0.012 ng/ml (0.00-0.12)
--- NOTE | 2017-04-29 01:53 | ERD ---
ER Documentation Chief Complaint Date/Time DATE: 04/29/17 TIME: 01:52 Chief Complaint c/o nonradiating mid chest pain with mild SOB HPI Pneumonia 61-year-old male who was in moderate in with chest pain, shortness breath started earlier today. Pain is mild to moderate intensity. No fevers no chills no nausea no vomiting. No other current complaints. Pain located on the right side of his chest. Patient multiple previous workups and a recent stress test which was negative ROS All systems reviewed and are negative except as per history of present illness. Medications Home Meds Active Scripts Tiotropium [place]* (Spiriva*) 18 Mcg Cap.w.dev, 1 INH INH DAILY, #1 INHALER Prov:KANDICEGregoryRositaZANDERVITO Pastrana 02/05/17 Salmeterol Xinaf/Fluticasone* (Advair*) 250-50 Diskus Inhaler, 1 INH INH BID, # 1 INHALER Prov:KANDICEJUAN Cleary Zeina 02/05/17 Tramadol HCl (Tramadol HCl) 50 Mg Tablet, 50 MG PO Q6 Y for PAIN, #20 TAB Prov:KANDICEGregoryRositaZANDERVITO Pastrana 02/05/17 Reported Medications Clopidogrel Bisulfate (Clopidogrel) 75 Mg Tablet, 75 MG PO DAILY, #30 TAB 04/29/17 Hydrocodone/Acetaminophen ([place]ghar 10-325 Tablet) 1 Each Tablet, 1 EACH PO BID for PAIN LEVEL 6-10, TAB 04/29/17 Pantoprazole* (Pantoprazole*) 40 Mg Tablet.dr, 40 MG PO BID, TAB 04/29/17 Quetiapine Fumarate* (Seroquel*) 300 Mg Tablet, 300 MG PO HS, TAB 02/04/17 Albuterol Sulfate* (Ventolin HFA*) 18 Gm Hfa.aer.ad, 1 PUFF INHALATION Q6H, #1 INHALER 02/04/17 Escitalopram Oxalate* (Lexapro*) 10 Mg Tablet, 10 MG PO DAILY, #30 TAB 11/03/16 Isosorbide Mononitrate* (Isosorbide Mononitrate*) 120 Mg Tab.sr.24h, 120 MG PO DAILY, TAB.SA 11/03/16 Divalproex Sodium* (Depakote ER*) 500 Mg Tabsr, 500 MG PO BID, #30 TAB.SA 11/03/16 Lorazepam* (Ativan*) 2 Mg Tablet, 2 MG PO BID Y for ANXIETY, #60 TAB 04/04/16 Esomeprazole Mag Trihydrate (Nexium) 40 Mg Capsule.dr, 40 MG PO DAILY 08/18/15 Losartan Potassium* (Cozaar*) 100 Mg Tablet, 100 MG PO DAILY, TAB 06/28/15 Aspirin* (Aspirin* Chew) 81 Mg Tab.chew, 81 MG PO DAILY, TAB.CHEW 08/12/14 Nitroglycerin* (Nitrostat*) 0.4 Mg Tab.subl, 0.4 MG SL Q5MIN Y for CHEST PAIN, BOTTLE 08/12/14 Carvedilol* (Coreg*) 3.125 Mg Tablet, 3.125 MG PO BID, TAB 08/12/14 Atorvastatin* (Atorvastatin*) 80 Mg Tablet, 80 MG PO HS, TAB 08/12/14 Discontinued Reported Medications Prasugrel Hydrochloride* (Effient*) 10 Mg Tablet, 10 MG PO DAILY, TAB 11/03/16 Allergies Allergies: Coded Allergies: haloperidol (Unverified Allergy, Mild, TONGUE TWITHCING, 04/29/17) lisinopril (Unverified Allergy, Unknown, cough, 04/29/17) PMhx/Soc History of Surgery: Yes (appendectomcy, right knee sx, cardiac stent) Anesthesia Reaction: No Hx Neurological Disorder: No Hx Respiratory Disorders: Yes (copd, emphysema) Hx Cardiac Disorders: Yes (cardiac stent,htn) Hx Psychiatric Problems: Yes (depression, bipolar) Hx Miscellaneous Medical Probl: Yes (marijuan use) Hx Alcohol Use: No Hx Substance Use: No Hx Tobacco Use: Yes Smoking Status: Current every day smoker Physical Exam Vitals Vital Signs Date Time Temp Pulse Resp B/P Pulse Ox O2 Delivery O2 Flow Rate FiO2 04/28/17 23:02 Nasal Cannula 2 04/28/17 22:50 98.5 94 22 128/80 96 Nasal Cannula 2.0 04/28/17 20:41 98.6 128 22 121/79 96 Physical Exam Const: [] Head: Atraumatic Eyes: Normal Conjunctiva ENT: Normal External Ears, Nose and Mouth. Neck: Full range of motion..~ No meningismus. Resp: Clear to auscultation bilaterally Cardio: Regular rate and rhythm, no murmurs Abd: Soft, non tender, non distended. Normal bowel sounds Skin: No petechiae or rashes Back: No midline or flank tenderness Ext: No cyanosis, or edema Neur: Awake and alert Psych: Normal Mood and Affect Result Diagram: 04/28/17225704/28/172257 Results 24 hrs Laboratory Tests Test 04/28/17 22:58 White Blood Count 7.010^3/ul Red Blood Count 5.1210^6/ul Hemoglobin 15.6g/dl Hematocrit 43.7% Mean Corpuscular Volume 85.4fl Mean Corpuscular Hemoglobin 30.5pg Mean Corpuscular Hemoglobin Concent 35.7g/dl Red Cell Distribution Width 13.4% Platelet Count 25074^3/UL Mean Platelet Volume 9.5fl Neutrophils % 73.5% Lymphocytes % 19.2% Monocytes % 6.6% Eosinophils % 0.3% Basophils % 0.1% Nucleated Red Blood Cells % 0.0/100WBC Neutrophils # (Manual) 5.110^3/ul Lymphocytes # 1.310^3/ul Monocytes # 0.510^3/ul Eosinophils # 0.010^3/ul Basophils # 0.010^3/ul Nucleated Red Blood Cells # 0.010^3/ul Sodium Level 147mmol/L Potassium Level 3.6mmol/L Chloride Level 108mmol/L Carbon Dioxide Level 23mmol/L Anion Gap 20 Blood Urea Nitrogen 13mg/dl Creatinine 0.80mg/dl Glucose Level 95mg/dl Calcium Level 9.7mg/dl Total Bilirubin 0.3mg/dl Direct Bilirubin 0.00mg/dl Indirect Bilirubin 0.3mg/dl Aspartate Amino Transf (AST/SGOT) 21IU/L Alanine Aminotransferase (ALT/SGPT) 34IU/L Alkaline Phosphatase 103IU/L Troponin I < 0.012ng/ml B-Type Natriuretic Peptide 62PG/ML Total Protein 7.6g/dl Albumin 4.2g/dl Globulin 3.40g/dl Albumin/Globulin Ratio 1.23 Current Medications Medications (Trade) Dose Ordered Sig/Domenic Route PRN Reason Start Time Stop Time Status Last Admin Dose Admin Sodium Chloride (NS) 500 ml @ 500 mls/hr Q1H STAT IV 04/28/17 22:58 04/28/17 23:57 DC 04/28/17 23:32 Aspirin (Aspirin) 325 mg ONCE STAT PO 04/28/17 22:58 04/28/17 23:04 DC 04/28/17 23:32 Lorazepam (Ativan) 1 mg ONCE ONCE IV 04/28/17 23:00 04/28/17 23:04 DC 04/28/17 23:32 Procedures/MDM EKG: Rate/Rhythm: Normal Sinus Rhythm QRS, ST, T-waves: No changes consistent w/ acute ischemia Impression: No evidence of ischemia or arrhythmia Chest X-ray 1V Interpreted by me: Soft Tissue: No acute abnormalities Bones: No acute abnormalities Mediastinum/Cardiac Silhouette/Lungs: No acute abnormalities Patient's thoracic symptoms have stabilized while in the department and are stable for outpatient follow up. Exam and work up not consistent w/ ischemia, arrhythmia, PE or dissection. Departure Diagnosis: Primary Impression: Chest pain Chest pain type: unspecified Qualified Code: R07.9 - Chest pain, unspecified type Condition: Stable ADALGISA GLASGOW Apr 29, 2017 01:53
[2017-04-29] MEDS ORDERED: LORA1TAB PO (01:54)
[2017-04-29 01:55] VITALS: BP 119/75; PULSE 76; RESP 16
== END 2017-04-29 02:17 | disposition home or self-care (01) ==
LOC: E/R 20:13
DX: R07.9 Chest pain, unspecified (principal); I10 Essential (primary) hypertension; J44.9 Chronic obstructive pulmonary disease, unspecified; F17.210 Nicotine dependence, cigarettes, uncomplicated; R06.02 Shortness of breath; Z79.82 Long term (current) use of aspirin; Z98.61 Coronary angioplasty status
CPT/HCPCS: 36415; 71010; 80053; 83880; 84484; 85025; 93005; 96374; J2060; J7040; Z7502; Z7610

== ENCOUNTER 2017-08-08 12:35 | Emergency (ER) | payer SELFPAY ==
[~2017-08-08] VITALS: Ht 182.9 cm; Wt 85.7 kg
[~2017-08-08 12:35] MED LIST changes: +CLOP75TA27 PO; +HYDR-902 PO; +LORA1TAB PO; +PANT40TA4 PO; -PRAS10TA6 PO
[2017-08-08 12:38] VITALS: Ht 182.9 cm; Wt 85.7 kg
== END 2017-08-08 18:30 | disposition left against medical advice (07) ==
LOC: E/R 12:35
DX: Z53.21 Procedure and treatment not carried out due to patient leaving prior to being seen by health care provider (principal)

== ENCOUNTER 2018-02-10 10:52 | Day surgery (SDC) | END 2018-02-10 15:45 | disposition short-term general hospital (02) ==

== ENCOUNTER 2018-12-06 20:48 | Emergency (ER) | payer OTHER ==
[~2018-12-06] VITALS: Ht 182.9 cm; Wt 77.7 kg
[~2018-12-06 20:48] MED LIST changes: -ADV25050 INH; +ASPI-903 PO; -ASPI81TA3 PO; +ATOR-2 PO; -ATOR80TA75 PO; +BENZ0.5T41 PO; -CARV3.12 PO; +CLON-412 PO; -CLOP75TA27 PO; +DIVA-75 PO; -DIVA500T7 PO; +ENOX40DI14 SC; -ESCI10TA PO; +ESCI20TA PO; -ESOM40CA PO; -HYDR-902 PO; -ISOS120T15 PO; -LORA-444 PO; -LORA1TAB PO; -LOSA100T47 PO; +METO-448 PO; +NICO-546 TD; -NIT4 SL; +NITR0.4T39 SL; -QUET300T13 PO; +QUET300T2 PO; -TIOT18CA INH; -TRAM50TA2 PO
[2018-12-06 21:11] VITALS: Ht 182.9 cm; Wt 77.7 kg
[2018-12-06 23:59] VITALS: BP 144/83; PULSE 74; RESP 19
[2018-12-07] MEDS ORDERED: HYDROCODONE/APAP (10/325) TAB PO ONE (01:30)
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
== END 2018-12-07 02:04 | disposition left against medical advice (07) ==
LOC: E/R 20:48
DX: R07.89 Other chest pain (principal); J44.9 Chronic obstructive pulmonary disease, unspecified; I10 Essential (primary) hypertension; F17.210 Nicotine dependence, cigarettes, uncomplicated; Z79.01 Long term (current) use of anticoagulants; Z79.82 Long term (current) use of aspirin; Z98.61 Coronary angioplasty status
CPT/HCPCS: 71045; 80053; 83880; 84484; 85025; 93005; Z7610; 36415

== ENCOUNTER 2018-12-07 02:37 | Emergency (ER) | payer SELFPAY | END 2018-12-07 02:38 | disposition left against medical advice (07) | LOC: E/R 02:37 | DX: Z53.21 Procedure and treatment not carried out due to patient leaving prior to being seen by health care provider (principal) ==

== ENCOUNTER 2018-12-17 08:53 | Day surgery (SDC) | payer OTHER ==
[~2018-12-17] VITALS: Ht 182.9 cm; Wt 78.6 kg
[2018-12-17] VITALS (20 sets, daily range): BP systolic 106–128; BP diastolic 43–80; PULSE 64–76; RESP 16–22; Ht 182.9 cm; Wt 78.6 kg
[2018-12-17] MEDS ORDERED: LOSA100T15 PO (09:08)
[2018-12-17] MEDS ORDERED: CLOP75TA27 PO (09:11)
[2018-12-17] MEDS ORDERED: ATOR20TA38 PO (09:12)
[2018-12-17] MEDS ORDERED: DOCU-144 PO (09:12)
[2018-12-17] MEDS ORDERED: QUET400T PO (09:13)
[2018-12-17] MEDS ORDERED: PANT40TA3 PO (09:15)
[2018-12-17] MEDS ORDERED: morphine 2 MG INJ IV STA (09:19)
[2018-12-17] MEDS ORDERED: NITR1PAT46 TD (09:27)
[2018-12-17] MEDS ORDERED: HYDR-4011 PO (09:28)
[2018-12-17] MEDS ORDERED: ACET-2047 PO (09:29)
[2018-12-17] MEDS ORDERED: DIPHENHYDRAMINE 50 MG CAP PO ONE (09:30)
[2018-12-17] MEDS ORDERED: DIAZEPAM 5 MG/ML SYG IV ONE (09:30)
[2018-12-17] MEDS ORDERED: MORP10DI10 IV* (09:30)
[2018-12-17] MEDS ORDERED: LORA-444 PO (09:31)
[2018-12-17] MEDS ORDERED: MAG355OR14 PO (09:32)
[2018-12-17] MEDS ORDERED: DIAZEPAM 5 MG TAB PO ONE (10:00)
[2018-12-17] MEDS ORDERED: IODIXANOL LOCM 100 ML BTL ONE (11:37)
[2018-12-17] MEDS ORDERED: HEPARIN 1000 UNITS/ML 10 ML INJ ONE (11:37)
[2018-12-17] MEDS ORDERED: MIDAZOLAM 1 MG/ML 2 ML INJ ONE (11:38)
[2018-12-17] MEDS ORDERED: FENTAnyl 50 MCG/ML VIAL ONE (11:38)
[2018-12-17] MEDS ORDERED: VERAPAMIL 5 MG INJ ONE (11:38)
[2018-12-17] MEDS ORDERED: LIDOCAINE 1% (MDV) 20 ML INJ ONE (11:38)
[2018-12-17] MEDS ORDERED: NITROGLYCERIN (IC) 100 MCG/ML INJ ONE (11:38)
[2018-12-17] MEDS ORDERED: BIVALIRUDIN 250MG /NS 50 ML 50 ML IVPB ONE (12:12)
[2018-12-17] MEDS ORDERED: SOD CHLORIDE 0.9% 1,000 ML IV SCH (13:14)
--- NOTE | 2018-12-17 13:19 | SIPON ---
Date/Time of Note Date/Time of Note DATE: 12/17/18 TIME: 13:18 Operative Report Preoperative Diagnosis 1.Chest pain 2.abnl MPI Postoperative Diagnosis 1.Patent diag stent 2.moderate nonobstructive cad Operation/Procedure Performed 1.LHC 2.IFR RCA Surgeon see signature line information technology assistant 1.Tio Anesthesia: moderate sedation Estimated blood loss: minimal Transfusion Required none Specimen none Grafts/Implants none Complications none JUAN ALBERTO LEUNG Dec 17, 2018 13:19
[2018-12-17] MEDS ORDERED: AL HYDROX/MG HYDROX/SIMETH 30 ML CUP PO PRN (13:30)
[2018-12-17] MEDS ORDERED: ACETAMINOPHEN 325 MG TAB PO PRN (13:30)
[2018-12-17] MEDS ORDERED: morphine 2 MG INJ IV PRN (13:30)
[2018-12-17] MEDS ORDERED: ONDANSETRON 4 MG INJ IV PRN (13:30)
[2018-12-17] MEDS ORDERED: LORAZEPAM 1 MG TAB PO ONE (16:00)
--- NOTE | 2018-12-17 18:44 | RADRPT ---
Vent Rate: 64 bpm RR Interval: 932 msec SD Interval: 166 msec QRS Duration: 105 msec QT Interval: 408 msec QTC Interval: 423 msec P-R-T [place]: -18 - -9 - -11 degrees Sinus rhythm...normal P axis, V-rate 50- 99 Inferior infarct, old...Q >35mS, II III aVF Electronically Signed By: Erlin Landry
--- NOTE | 2018-12-18 09:14 | CARRPT ---
DATE OF PROCEDURE: 12/17/2018 TYPE OF PROCEDURE: 1. Left heart catheterization. 2. Coronary angiography. 3. IFR performed in right coronary artery. ATTENDING PHYSICIAN: Juan Alberto Landry MD REFERRING PHYSICIAN: Dr. Ratliff. INDICATION: Chest pain refractory to medical therapy, positive stress test findings for anterior ischemia, high risk marker for cardiovascular events. TYPE OF ANESTHESIA: Conscious, local. BRIEF HISTORY: Mr. Bronson is a 63-year-old male with history of hypertension, dyslipidemia, coronary artery disease, status post prior [facility] and stent placement, who presented with complaints of substernal chest pain at an outside hospital, ruled out for myocardial infarction with cardiac stress test revealing positive ischemia with mildly depressed EF. Given these findings, the patient referred for and presents today to undergo left heart catheterization. Status possibly significant obstructive coronary artery disease and symptoms of chest pain and positive stress test findings. PROCEDURE: After informed consent was obtained, he was sent to [facility] cardiac catheterization lab where his right radial area was prepped and draped in the usual sterile fashion, 2% lidocaine was in the right radial area in order to achieve adequate anesthesia. Using the modified Seldinger technique, the radial artery was cannulated and a 6-Chile[place] JL3.5 catheter was used to cannulate the left main coronary ostium. With contrast injection, most the left coronary system was obtained. A JL3.5 guidewire and a JR4 was used to cannulate the right coronary arterial ostium, contrast injection, multiple views of right coronary arterial system were obtained. JL4 was then used to cross the aortic valve and LV was measured and pullback across the aortic valve to assess for significant gradient. At this time, given the findings of intermediate lesion of the patient's proximal coronary, we moved directly into an Angiomax procedure. The patient was given Angiomax bolus continuous infusion. A FR4 guide was used to cannulate the right coronary arterial ostium. A pressure guidewire was passed to the distal lesion and IFR was performed achieving result of 0.98 above the level for cutoff for a flow- limiting lesion. Subsequently, further adequate images were ascertained to once again assure that there was no more significant lesion, which there was not and at this time, the guidewires and guide were removed. The patient's sheath was removed. TR band was applied. There were no noted complications. FINDINGS: 1. Coronary angiography: Left main 4 mm, no significant stenoses. Circumflex proximally is a 3.5 mm vessel and in its midportion has a 20% stenosis. The circ then bifurcates with an obtuse marginal bifurcating 2.5 mm, with areas up to a 30 to 40% and then a distal branch obtuse marginal 3 mm with no significant stenosis, gives off some small left-sided PDA and posterolateral branch with the PDA being a sub-1.5 mm vessel and the PDA being a sub-2 mm vessel. The patients LAD proximally is a 3 mm vessel and in its proximal portion has a proximal stenosis of approximately 40%. There is in the midportion another 30 to 40% stenosis and LAD around the apex. The proximal branching diagonal 2 mm with a widely patent stent in mid branching diagonal sub-2 mm vessel with no central focal stenosis. The patient's right coronary artery proximally is a 3.5 mm vessel and has an ostial 50% to 60% stenosis. It is a dominant vessel and therefore gives off a sub-2 mm PDA and a 2 mm posterolateral branch each with no significant focal stenoses. 2. IFR performed in the patient's right coronary artery. A 0.98 above the level of cutoff for a flow-limiting lesion. 3. Measurement of left end diastolic pressure of 11 to 13. No significant area of stenosis by gradient. TOTAL FLUOROSCOPY TIME: 6.8 minutes. TOTAL CONTRAST: 110 mL. IMPRESSION: 1. Moderate nonobstructive coronary artery disease with IFR value above the cutoff limit for a proximal RCA lesion. 2. Widely patent diagonal stent. RECOMMENDATIONS: 1. At this time, would maximize medical management. 2. Aggressive risk factor reduction. 3. The patient will be transferred back to [facility] for post-cath observation and he may be consistent with probable discharge later in afternoon. Dictated By: JUAN ALBERTO MEJIA/ANNABELLA Conf#: [id number] DID#: [id number] ORIANA
== END 2018-12-17 17:32 | disposition home or self-care (01) ==
LOC: CCL 08:53 → SDS 08:53 → CCL 17:32
PROVIDERS: ATTEND Internal Medicine
DX: I25.10 Atherosclerotic heart disease of native coronary artery without angina pectoris (principal); I10 Essential (primary) hypertension; E78.5 Hyperlipidemia, unspecified
CPT/HCPCS: 80048; 80061; 85025; 85610; 85730; 93005; 93458; 93571; C1887; J0583; J1644; J2250; J2270; J3010; Q9967

== ENCOUNTER 2019-03-08 14:26 | Observation (INO) | payer OTHER ==
[~2019-03-08] VITALS: Ht 182.9 cm; Wt 74.8 kg
[~2019-03-08 14:26] MED LIST changes: +ACET-2047 PO; -ALBU18HF INHALATION; -ATOR-2 PO; +ATOR20TA38 PO; -BENZ0.5T41 PO; -CLON-412 PO; +CLOP75TA27 PO; -DIVA-75 PO; +DOCU-144 PO; -ENOX40DI14 SC; -ESCI20TA PO; +HYDR-4011 PO; +LORA-444 PO; +LOSA100T15 PO; +MAG355OR14 PO; -METO-448 PO; +MORP10DI10 IV*; -NICO-546 TD; +NITR1PAT46 TD; +PANT40TA3 PO; -PANT40TA4 PO; -QUET300T2 PO; +QUET400T PO
--- NOTE | 2019-03-08 14:46 | EN ---
Date/Time of Note Date/Time of Note DATE: 03/08/19 TIME: 14:46 ER Progress Note 63-year-old male history of hypertension, depression, bipolar disorder, 2 heart stents presents for chest pain started this morning. Medical screening examination initiated and labs/imaging tests ordered. Patient will be seen by another provider. JAROD JOHNSON DO Mar 08, 2019 14:46
[2019-03-08] MEDS ORDERED: morphine 4 MG/ML VIAL IV STA (17:46)
[2019-03-08] MEDS ORDERED: ASPIRIN 81 MG TAB PO STA (17:46)
[2019-03-08] MEDS ORDERED: ONDANSETRON 4 MG INJ IV STA (17:46)
--- NOTE | 2019-03-08 17:57 | ERD ---
ER Documentation Chief Complaint Chief Complaint CP HPI This is a 63-year-old male with a past medical history of coronary artery dis ease status post 2 cardiac stents. The first cardiac stent was placed 6 years ago. The most recent cardiac stent was placed 2 years ago. He states his precision grinder external is Dr. Joshua English who does not have privileges at [facility]. His primary care physician is Dr. Sadi Ratliff. The patient indicates he is all past medical history in addition to coronary artery disease of depression and bipolar disorder. The patient indicates that yesterday evening he began to experience palpitations with chest pressure. The chest pressure would last for roughly 30 minutes and then will spontaneously resolved. The chest pressure did not radiate to the neck arm back or jaw. The patient stated that upon awakening this morning had recurrence of the chest pressure. It was on the left side. The chest pressure has been persistent for several hours and this prompted him to come to the emergency department to be further evaluated as he had associated symptoms of nausea and diaphoresis. He has no shortness of breath. He smokes 5 cigarettes a day. ROS All systems reviewed and are negative except as per history of present illness. Medications Home Meds Reported Medications Mag Hydrox/Al Hydrox/Simeth (Maalox Advanced Suspension) 355 Ml Oral.susp, 30 ML PO Q6 PRN for DISTENSION/GAS/BLOATING 12/17/18 Lorazepam* (Ativan*) 2 Mg Tablet, 2 MG PO Q8 PRN for ANXIETY, #60 TAB 12/17/18 Morphine Sulfate* (Morphine* Liq) 10 Mg/0.5 Ml Disp.syrin, 2 MG IV* Q4 PRN for SEVERE PAIN LEVEL 7-10, ML 12/17/18 Acetaminophen* (Acetaminophen*) 650 Mg Tablet, 650 MG PO Q6H PRN for MILD PAIN LEVEL 1-3, #30 TAB 12/17/18 Hydrocodone/Acetaminophen ([place] 5-325 Tablet) 1 Each Tablet, 1 EACH PO Q6 PRN for MODERATE PAIN LEVEL 4-6, TAB 12/17/18 Nitroglycerin* (Nitroglycerin* Patch) 0.1 mg/hr Patch, 1 PATCH TD DAILY, PATCH PT HAS PATCH ON 12-17-18 12/17/18 Pantoprazole* (Protonix*) 40 Mg Tablet.dr, 40 MG PO BID, TAB 12/17/18 Quetiapine Fumarate* (Seroquel*) 400 Mg Tablet, 400 MG PO HS, TAB 12/17/18 Docusate Sodium* (Colace*) 100 Mg Capsule, 100 MG PO DAILY, #30 CAP 12/17/18 Atorvastatin Calcium* (Atorvastatin Calcium*) 20 Mg Tablet, 20 MG PO QHS, #30 TAB 12/17/18 Clopidogrel Bisulfate (Clopidogrel) 75 Mg Tablet, 75 MG PO DAILY, #30 TAB 12/17/18 Losartan Potassium* (Losartan Potassium*) 100 Mg Tablet, 100 MG PO DAILY, TAB 12/17/18 Aspirin* (Aspirin* Chew) 81 Mg Tab.chew, 81 MG PO DAILY, TAB.CHEW 08/12/14 Nitroglycerin* (Nitrostat*) 0.4 Mg Tab.subl, 0.4 MG SL Q5MIN PRN for CHEST PAIN, BOTTLE 08/12/14 Allergies Allergies: Coded Allergies: haloperidol (Unverified Allergy, Mild, TONGUE TWITHCING, 12/06/18) lisinopril (Unverified Allergy, Unknown, cough, 02/10/18) PMhx/Soc History of Surgery: Yes (APPY,PATELLA SX, HEART CTH WITH STENT,TONSILLECTOMY) Anesthesia Reaction: No Hx Neurological Disorder: No Hx Respiratory Disorders: Yes (COPD) Hx Cardiac Disorders: Yes (CAD,HTN, HIGH CHOL,[place] , STENT, ) Hx Psychiatric Problems: No Hx Miscellaneous Medical Probl: No Hx Alcohol Use: No Hx Substance Use: No Hx Tobacco Use: Yes Smoking Status: Current every day smoker Physical Exam Vitals Vital Signs Date Temp Pulse Resp B/P (MAP) Pulse Ox O2 O2 Flow FiO2 Time Delivery Rate 03/08/19 98.6 80 16 130/96 98 Room Air 17:38 (107) 03/08/19 98.8 122 18 132/85 99 14:33 (101) Physical Exam Constitutional:Well-developed. Well-nourished. HEENT:Normocephalic. Atraumatic.Pupils were equal round reactive to light. Moist mucous membranes.No tonsillar exudates. Neck: No nuchal rigidity. No lymphadenopathy. No posterior cervical spine tenderness or step-offs. Respiratory: Not using accessory muscles of respiration.Lungs were clear to auscultation bilaterally. No rhonchi. No rales. No wheezing. Cardiovascular: Tachycardic with regular rhythm.No murmurs. No rubs were appreciated.S1, S2 normal. Distal pulses are palpable 2+ bilaterally. GI: Abdomen was soft. Nontender. Non Distended. No pulsatile abdominal masses or bruits. No rebound. No guarding. Bowel sounds were present and normal. Muscle skeletal: Full range of motion of both the upper and lower extremities bilaterally.Normal muscle tone.No assymetrical calf tenderness or swelling. Skin: No petechia, no purpura. No lesions on the palms or the soles of the feet. No maculopapular rash. NEURO: Patient was alert, awake, orientated x3.No facial droop. Gait observed and normal with no ataxia.Speech had regular rate and rhythm. No focal neurological deficits. Result Diagram: 03/08/19 1449 03/08/19 1449 Results 24 hrs Laboratory Tests Test 03/08/19 14:49 White Blood Count 5.6 10^3/ul Red Blood Count 5.13 10^6/ul Hemoglobin 14.8 g/dl Hematocrit 42.6 % Mean Corpuscular Volume 83.0 fl Mean Corpuscular Hemoglobin 28.8 pg Mean Corpuscular Hemoglobin Concent 34.7 g/dl Red Cell Distribution Width 13.4 % Platelet Count 149 10^3/UL Mean Platelet Volume 9.2 fl Immature Granulocytes % 0.400 % Neutrophils % 80.4 % Lymphocytes % 13.6 % Monocytes % 5.6 % Eosinophils % 0.0 % Basophils % 0.0 % Nucleated Red Blood Cells % 0.0 /100WBC Immature Granulocytes # 0.020 10^3/ul Neutrophils # 4.5 10^3/ul Lymphocytes # 0.8 10^3/ul Monocytes # 0.3 10^3/ul Eosinophils # 0.0 10^3/ul Basophils # 0.0 10^3/ul Nucleated Red Blood Cells # 0.0 10^3/ul Sodium Level 143 mmol/L Potassium Level 4.0 mmol/L Chloride Level 111 mmol/L Carbon Dioxide Level 21 mmol/L Anion Gap 11 Blood Urea Nitrogen 10 mg/dl Creatinine 0.76 mg/dl Est Glomerular Filtrat Rate mL/min > 60 mL/min Glucose Level 120 mg/dl Calcium Level 9.9 mg/dl Total Bilirubin 0.8 mg/dl Direct Bilirubin 0.00 mg/dl Indirect Bilirubin 0.8 mg/dl Aspartate Amino Transf (AST/SGOT) 19 IU/L Alanine Aminotransferase (ALT/SGPT) 21 IU/L Alkaline Phosphatase 112 IU/L Troponin I < 0.012 ng/ml Total Protein 7.8 g/dl Albumin 4.4 g/dl Globulin 3.40 g/dl Albumin/Globulin Ratio 1.29 Current Medications Medications Dose Sig/Domenic Start Time Status Last (Trade) Ordered Route PRN Stop Time Admin Dose Reason Admin Aspirin 162 mg ONCE STAT 03/08/19 DC (Aspirin) PO 17:46 03/08/19 17:47 Morphine 4 mg ONCE STAT 03/08/19 DC Sulfate IV 17:46 03/08/19 (morphine) 17:47 Ondansetron 4 mg ONCE STAT 03/08/19 DC HCl (Zofran IV 17:46 03/08/19 Inj) 17:47 Procedures/MDM The patient presented to the emergency department with chest pain. My clinical evaluation and workup was to distinguish minor causes of chest pain from acute life threatening conditions such as myocardial infarction, pulmonary embolism, aortic dissection, esophageal rupture, cardiac tamponade. The patient was placed on a ekg monitor tech and continuous pulse oximetry. IV access established by nursing staff. Patient had taken 81 mg of aspirin prior to arrival. He was given 162 mg of aspirin in the emergency department. He was also given intravenous morphine and Zofran as this did not improve his chest discomfort. 12 Lead EKG tracing ordered and reviewed by myself showed: Sinus tachycardia 126 bpm and no arrhythmia. AL interval normal. QRS duration normal. No ST segment elevation No ST segment depression. No changes consistent with acute ischemia. Chest radiograph showed no evidence of pneumonia or pneumothorax. The patient's troponin was within normal limits. However given the patient's significant cardiac history I did feel he required admission for observation for serial twelve-lead EKG tracings and cardiac set of enzymes. Departure Diagnosis: Primary Impression: Chest pain Chest pain type: unspecified Qualified Codes: R07.9 - Chest pain, unspecified Condition: Serious FERNIE FONG MD Mar 08, 2019 17:57
[2019-03-08] MEDS: NITROGLYCERIN 0.1 MG/HR PATCH TRANSDERM SCH (19:57)
[2019-03-08] MEDS: PANTOPRAZOLE (EC) 40 MG TAB PO SCH (19:57)
[2019-03-08] MEDS: LOSARTAN 50 MG TAB PO SCH (19:58)
[2019-03-08] MEDS ORDERED: ZOLPIDEM 5 MG TAB PO PRN (20:00)
[2019-03-08] MEDS ORDERED: ACETAMINOPHEN 325 MG TAB PO PRN ×2 (20:00)
[2019-03-08] MEDS ORDERED: AL HYDROX/MG HYDROX/SIMETH 30 ML CUP PO PRN (20:00)
[2019-03-08] MEDS ORDERED: NITROGLYCERIN (SL) 0.4 MG TAB SL PRN (20:00)
[2019-03-08] MEDS ORDERED: ONDANSETRON 4 MG INJ IV PRN ×2 (20:00)
[2019-03-08] MEDS ORDERED: morphine LIQ (10 MG/5 ML) CUP JT PRN (20:00)
[2019-03-08] MEDS: LORAZEPAM 1 MG TAB PO PRN (20:03)
[2019-03-08] MEDS ORDERED: QUETIAPINE 100 MG TAB PO SCH (21:00)
[2019-03-08] MEDS ORDERED: ATORVASTATIN 20 MG TAB PO SCH (21:00)
[2019-03-08] MEDS: morphine 2 MG INJ IV PRN (21:44)
[2019-03-08 22:45] VITALS: BP 132/67; PULSE 95; RESP 18
[2019-03-08 23:00] VITALS: Ht 182.9 cm; Wt 74.8 kg
[2019-03-08 23:56] VITALS: BP 122/71; PULSE 95; RESP 18
[2019-03-09] MEDS: morphine 2 MG INJ IV PRN ×3 (01:59→10:45)
[2019-03-09] MEDS: LORAZEPAM 1 MG TAB PO PRN ×2 (03:48→11:55)
[2019-03-09 04:07] VITALS: BP 121/64; PULSE 75; RESP 17
[2019-03-09] MEDS: PANTOPRAZOLE (EC) 40 MG TAB PO SCH (06:37)
[2019-03-09 08:07] VITALS: BP 121/71; PULSE 68; RESP 19
[2019-03-09] MEDS ORDERED: DOCUSATE SODIUM 100 MG CAP PO SCH (09:00)
[2019-03-09] MEDS: LOSARTAN 50 MG TAB PO SCH (09:00)
[2019-03-09] MEDS ORDERED: ASPIRIN 81 MG TAB PO SCH (09:00)
[2019-03-09] MEDS ORDERED: CLOPIDOGREL 75 MG TAB PO SCH (09:00)
[2019-03-09] MEDS: NITROGLYCERIN 0.1 MG/HR PATCH TRANSDERM SCH (10:44)
--- NOTE | 2019-03-09 11:07 | PDOCDIS ---
Discharge Instructions CONDITION [id number] Patient Condition: [id number] Good HOME CARE INSTRUCTIONS: Geovanni Diet Instructions: [id number] Low Fat /Cholesterol ACTIVITY: [id number] Activity Restrictions: [id number] No Restrictions FOLLOW UP/APPOINTMENTS Follow-up Plan pcp 1 week WALTER OMALLEY MD Mar 09, 2019 11:07
[2019-03-09 11:21] VITALS: BP 134/79; PULSE 71; RESP 19
--- NOTE | 2019-03-09 11:36 | HP ---
DATE OF ADMISSION: 03/08/2019 CHIEF COMPLAINT: Chest pain. HISTORY OF PRESENT ILLNESS: A 63-year-old male with known coronary artery disease status post cardia c stent x2 about 2 years prior to admission and about 6 years prior to admission, presented to emerge ncy room with complaint of chest pressure associated with shortness of breath and nausea and diaphore sis. The patient reports that his chest pain lasted 5 to 6 hours. The patient was recently admitted at [facility] and underwent a cardiac catheterization in 11/2018. He was found to have a patent diagonal stent and nonobstructive coronary artery disease. Past initial evaluation was unremarkable. EKG did not show any acute changes. Serial troponins have been negative. The patient admits to smoking 5 cigarettes per day. PAST MEDICAL HISTORY: 1. Coronary artery disease. 2. History of old myocardial infarction. 3. Anxiety disorder. MEDICATIONS PRIOR TO ADMISSION: 1. Lorazepam 1 mg every 8 hours as needed. 2. Morphine sulfate p.o. q.4 hours as needed. 3. Nitroglycerin in a p.r.n. 4. Protonix 40 mg daily. 5. Seroquel 400 mg at bedtime. 6. Lipitor 20 mg at bedtime. 7. Losartan 100 mg daily. 8. Aspirin 81 mg daily. 9. The patient denies taking Plavix. ALLERGIES: THE PATIENT IS ALLERGIC TO HALDOL AND LISINOPRIL. PAST SURGICAL HISTORY: Status post appendectomy, status post patellar surgery, status post tonsillec ashley. SOCIAL HISTORY: The patient lives at home. He admits to smoking 5 cigarettes a day. He denies any illicit drug use or alcohol. PHYSICAL EXAMINATION: GENERAL: Well-developed, well-nourished male who is in no apparent distress. VITAL SIGNS: Stable. He is afebrile. HEENT: Extraocular muscles intact. Pupils equal and reactive to light bilaterally. Sclerae are ani cteric. Oropharynx is clear and moist. NECK: Supple, no JVD, no carotid bruits. LUNGS: Clear to auscultation bilaterally. CARDIAC: Regular rate and rhythm. No murmurs, rubs or gallops. ABDOMEN: Soft, nontender, nondistended, normoactive bowel sounds. EXTREMITIES: No clubbing, cyanosis, or edema. NEUROLOGICAL: Nonfocal. SKIN: The patient has multiple tattoos on bilateral arms and chest area. LABORATORY DATA: Basic metabolic panel is within normal limits. Serial troponins have been negative x3. CBC is also within normal limits. ASSESSMENT: 1. A 63-year-old male with history of coronary artery disease presenting with complaint of chest pre ssure. There are no acute EKG changes and serial troponins have been negative. The patient underwen t cardiac catheterization in 11/2018. He was found to have a PICC tentative diagnosis stent and nono bstructive disease. 2. Anxiety disorder. 3. Chronic pain syndrome. 4. Narcotic dependence. 5. Nicotine addiction. PLAN: 1. Place in tele observation. 2. Proceed with a Lexiscan stress test. 3. Resume all home medications. 4. Dr. Landry was notified of this admission. Dictated By: WALTER FARFAN/NTS Conf#: [id number] DID#: [id number] CC: JUAN ALBERTO LANDRY MD;*End*
[2019-03-09] MEDS ORDERED: ISOSORBIDE MONONITRATE(SR)30 MG TAB PO SCH (13:00)
[2019-03-09] MEDS ORDERED: METOPROLOL (XL) 25 MG TAB PO SCH (13:00)
--- NOTE | 2019-03-09 14:13 | CONS ---
DATE OF ADMISSION: 03/08/2019 DATE OF CONSULTATION: 03/09/2019 REASON FOR CONSULTATION: Chest pain, assess for acute coronary syndrome. REQUESTING PHYSICIAN: Edmond Licona MD HISTORY OF PRESENT ILLNESS: Mr. Bronson is a 63-year-old male with a history of coronary artery disease, status post prior PTCA and stent placement per patient, most recently 2 years prior with a left heart catheterization done, 11/2018. At that time, the patient had moderate nonobstructive disease, underwent IFR of the right coronary lesion which was above the cutoff for flow-limiting lesion and discharged to outpatient followup. He carries a history of myocardial infarction, anxiety disorder, hypertension, possible drug seeking behavior who presents with complaints of substernal chest pain of onset also on the day of admission while pulling weeds per patient. Last approximately 45 hours describes as a pressure-like sensation. No radiation. Upon arrival, temperature 98.8, blood pressure 130/85, pulse 120, respiratory rate 18, satting 99%. The patient's labs were white count 5.6, hemoglobin of 14.8, platelet count of 149. Sodium 143, potassium 4.0, creatinine 0.76, BUN 10, troponin negative. The patient's electrocardiogram revealed sinus rhythm, rate 89, normal axis, normal intervals, no significant ST or T-wave abnormalities. The patient subsequently has been admitted to the floor and since admit to floor, has had negative troponins x3. Denies ongoing chest pain. Monitored telemetry revealing sinus rhythm, no significant arrhythmias or pauses. PAST MEDICAL HISTORY: As above in HPI. MEDICATIONS CURRENTLY IN HOSPITAL: 1. Aspirin 81 mg daily. 2. Plavix 75 mg daily. 3. Lipitor 10 mg at bedtime. 4. Seroquel 400 mg p.o. at bedtime. 5. Losartan 100 mg daily. MEDICATIONS PRIOR TO ADMIT: 1. Losartan 100 mg daily 3. Aspirin 81 mg daily. 4. Lorazepam 2 p.o. q.8 p.r.n. 5. Seroquel. 6. Colace. 7. Protonix. 8. Lipitor 20 mg at bedtime. ALLERGIES: HALDOL, LISINOPRIL. SOCIAL HISTORY: No current tobacco, ETOH or illicit drug use. FAMILY HISTORY: No history of sudden cardiac or early CAD. REVIEW OF SYSTEMS: As above in HPI. CONSTITUTIONAL: No fevers, chills. PULMONARY: No current shortness of breath. CARDIOVASCULAR: No current chest pain, but chest pain on admit. GASTROINTESTINAL: No vomiting. GENITOURINARY: No hematuria. MUSCULOSKELETAL: Degenerative joint disease. PSYCHIATRIC: Positive psych history. NEUROLOGIC: No documented history of CVA. ENDOCRINE: No documented history of diabetes mellitus. PHYSICAL EXAMINATION: VITAL SIGNS: Temperature of 98, blood pressure 134/79, pulse 70, respiratory rate 19, satting 93%. GENERAL: The patient is alert, awake, in no acute distress. NECK: JVP approximately 8 to 9 cm of water. CHEST: Fair air movement throughout. HEART: Regular rate and rhythm. Normal S1, S2, I/ systolic murmur, nondisplaced PMI. ABDOMEN: Positive bowel sounds, soft. EXTREMITIES: No significant pitting edema, 1+ pulses bilateral posterior tibial flaps. LABORATORIES: Most recently from today, troponin negative x3. IMAGING STUDIES: As above in HPI. No further imaging studies for my review at this time. ECG: As above in HPI. No further electrocardiograms for my review at this time. IMPRESSION: 1. Chest pain, assess for acute coronary syndrome with the patient resolved chest pain. Negative troponin x3. Recent left heart cath November 2018 revealing no significant new obstructive coronary artery disease, somewhat atypical symptomatology at this time. 2. Hypertension, under reasonable control. 3. Dyslipidemia. 4. History of percutaneous transluminal coronary angioplasty and stent placement approximately 2 years prior for patient with a negative cath in 11/2018 and a negative cath in 01/2018. 5. Anxiety disorder. 6. Probable drug seeking behavior/narcotic dependence. RECOMMENDATIONS: 1. At this time, would maintain patient on telemetry monitoring to follow rhythm and rates closely. 2. We would continue the patient's current aspirin and statin therapy and adjust it according to a fasting lipid panel that should be added to the patient morning labs. 3. Will consider initiation of oral nitrates and low-dose beta david for maximal patient's medical therapy. If the patient continues to remain chest pain free, the patient will be reasonable for discharge with further outpatient followup. Thank you for allowing me to take part in the care of this patient. I will continue to follow along very closely with you with further recommendations to be made as the patient progresses through his inpatient hospital clinical course. Dictated By: JUAN LABERTO MEJIA/ANNABELLA Conf#: [id number] DID#: [id number] CC: EDMOND LICONA MD;*EndCC* MTDD
== END 2019-03-09 13:00 | disposition home or self-care (01) ==
LOC: E/R 14:26 → TEL 19:35
PROVIDERS: ADMIT Internal Medicine; ATTEND Internal Medicine
DX: R07.9 Chest pain, unspecified (principal); I10 Essential (primary) hypertension; E78.5 Hyperlipidemia, unspecified; I25.10 Atherosclerotic heart disease of native coronary artery without angina pectoris; Z95.5 Presence of coronary angioplasty implant and graft; G89.4 Chronic pain syndrome; J44.9 Chronic obstructive pulmonary disease, unspecified; F41.9 Anxiety disorder, unspecified; F17.200 Nicotine dependence, unspecified, uncomplicated; Z79.82 Long term (current) use of aspirin
CPT/HCPCS: 71045; 80053; 84484; 85025; 93005; 96374; 96375; J2270; J2405; Z7500; Z7502; Z7610; G0378